=== PATIENT | female | born 1985 | race American Indian/Alaskan Native ===

== ENCOUNTER 2016-04-20 15:39 | Emergency (ER) | payer MEDICAID, OTHER ==
--- NOTE | 2016-04-20 16:51 | Emergency Department Report ---
Chief Complaint: Abdominal Pain Stated Complaint: GENERAL Time Seen by Provider: 04/20/16 16:44 - HPI History of Present Illness: Patient here reports vaginal discharge with odor. She is complaining of lower abdominal pain and lower back pain times one week. Reports painful urination. She also reports diarrhea. Patient said that she was seen at [facility] last week for back pain and she's not getting any relief with tramadol. She denies fever or chills. Denies any nausea or vomiting. Reports that her abdominal or back pain is 10 out of 10 and it feels like pressure. Has any blood in urine. Last menstrual period was one third 2017 - ROS Review of Systems: all Systems are negative unless stated in HPI above. - Exam Vital Signs: Vital Signs 04/20/16 16:13 Temperature 98.4 F Pulse Rate 81 Respiratory 16 Rate Blood Pressure 122/86 Physical Exam: GEN: This is a morbidly obese patient does not seem to be in any acute distress. Abdomen: Tender to palpate the pelvic area. Normal bowel sounds. Positive CVA tenderness. CV: S1, S2. Regular rate and rhythm. MSE screening note: Focused history and physical exam performed. Due to findings the following was ordered:see mdm ED Medical Decision Making - Medical Decision Making Medical decision making: Patient seen by provider in triage area. Appropriate protocol activated and patient to main ED to be seen by physician. ED Disposition for MSE Condition: Stable Instructions: Abdominal Pain (ED)
[2016-04-20 17:33] LABS: Basophils % (Auto) 0.6 % (0.0-1.8); Eosinophils % (Auto) 2.7 % (0.0-4.3); Hematocrit 39.7 % (30.3-42.9); Hemoglobin 12.7 gm/dl (10.1-14.3); Mean Corpuscular HGB Conc 32 % (30-34); Mean Corpuscular Hemoglobin 27 pg (28-32); Mean Corpuscular Volume 85 fl (79-97); Platelet Count 288 K/mm3 (140-440); Red Blood Count 4.68 M/mm3 (3.65-5.03); Red Cell Distribution Width 13.9 % (13.2-15.2); White Blood Count 12.9 K/mm3 (4.5-11.0)
[2016-04-20 18:01] LABS: Alanine Aminotransferase 23 units/L (7-56); Albumin 3.3 g/dL (3.9-5); Alkaline Phosphatase 79 units/L (35-129); Bilirubin,Total 0.2 mg/dL (0.1-1.2); Blood Urea Nitrogen 3 mg/dL (7-17); Calcium 8.2 mg/dL (8.4-10.2); Carbon Dioxide 25 mmol/L (22-30); Glucose 134 mg/dL (65-100); Lipase 20 units/L (13-60); Potassium 3.6 mmol/L (3.6-5.0); Sodium 142 mmol/L (137-145); Total Protein 6.5 g/dL (6.3-8.2)
[2016-04-20 18:13] LABS: Bilirubin,Direct < 0.2 mg/dL (0-0.2)
[2016-04-20 18:14] LABS: Anion Gap 17 mmol/L
[2016-04-20 19:31] LABS: Bilirubin,Urine NEG (Negative); Blood,Urine NEG (Negative); Ketones,Urine NEG (Negative); Leukocyte Esterase,Urine SM (Negative); Mucus,Urine FEW /HPF; Nitrite,Urine NEG (Negative); Protein,Urine <15 mg/dL mg/dL (Negative); Urobilinogen,Urine < 2.0 mg/dL (<2.0)
[2016-04-21] MEDS ORDERED: DILAUDID IV ONE (02:44)
[2016-04-21] MEDS ORDERED: NACL 0.9% 1000 ML 1,000 ML IV ONE (02:44)
[2016-04-21] MEDS ORDERED: VIBRAMYCIN PO ONE (02:44)
[2016-04-21] MEDS ORDERED: TORADOL IV ONE (02:44)
[2016-04-21] MEDS ORDERED: ROCEPHIN/NS 1 GM/50 ML 50 ML IV ONE (02:44)
[2016-04-21] MEDS ORDERED: ZOFRAN IV ONE (02:44)
--- NOTE | 2016-04-21 02:46 | Emergency Department Report ---
ED Abdominal Pain HPI - General Chief Complaint: Abdominal Pain Stated Complaint: GENERAL Time Seen by Provider: 04/20/16 16:52 Source: patient, RN notes reviewed Mode of arrival: Ambulatory Limitations: No Limitations - History of Present Illness Initial Comments: This is a 30-year-old female, previously unknown to me. She recently moved here from [place]. She does not have a primary care doctor. She denies chronic medical conditions, with the exception of obesity. The patient presents to the ER with bilateral lower back pain, vaginal discharge and abdominal pain for one week. Patient was seen at another hospital last week, discharged with antibiotics, she cannot remember the name of antibiotics, but she indicates she was unable to afford them secondary to insurance issues. Pain is sharp, achy, increases with palpation, decreases with rest. Positive dysuria. Positive vaginal discharge. 2 sexual partners in the past year. Patient reports sporadic barrier protection use. MD Complaint: abdominal pain -: Gradual Location: diffuse Severity: moderate Severity scale (0 -10): 10 Quality: cramping Consistency: intermittent Improves With: rest Worsens With: movement Associated Symptoms: nausea, dysuria - Related Data Previous Rx's Medication Instructions Recorded Last Taken Type Doxycycline [Vibramycin] 100 mg PO Q12HR #28 capsule 04/21/16 Unknown Rx Ibuprofen [Motrin] 600 mg PO Q8H PRN #30 tablet 04/21/16 Unknown Rx Ondansetron [Zofran Odt] 4 mg PO QID PRN #20 tab.rapdis 04/21/16 Unknown Rx Allergies Allergy/AdvReac Type Severity Reaction Status Date / Time morphine Allergy Itching Verified 04/20/16 16:10 ED Review of Systems ROS: Stated complaint: GENERAL Other details as noted in HPI Constitutional: malaise, weakness. denies: fever Eyes: denies: vision change ENT: denies: epistaxis Respiratory: denies: cough, shortness of breath, wheezing Cardiovascular: denies: chest pain, palpitations Gastrointestinal: abdominal pain Genitourinary: discharge Musculoskeletal: back pain Skin: denies: rash, lesions Neurological: denies: headache, weakness, paresthesias ED Past Medical Hx - Medications Home Medications: Home Medications Medication Instructions Recorded Confirmed Last Taken Type Doxycycline [Vibramycin] 100 mg PO Q12HR #28 capsule 04/21/16 Unknown Rx Ibuprofen [Motrin] 600 mg PO Q8H PRN #30 tablet 04/21/16 Unknown Rx Ondansetron [Zofran Odt] 4 mg PO QID PRN #20 tab.rapdis 04/21/16 Unknown Rx ED Physical Exam - General Limitations: No Limitations General appearance: alert, in no apparent distress, obese - Head Head exam: Present: atraumatic, normocephalic - Eye Eye exam: Present: normal appearance - ENT ENT exam: Present: normal exam, normal orophraynx, mucous membranes moist, normal external ear exam - Neck Neck exam: Present: normal inspection, full ROM. Absent: tenderness, meningismus - Respiratory Respiratory exam: Present: normal lung sounds bilaterally. Absent: respiratory distress, wheezes, rales, rhonchi, stridor, chest wall tenderness - Cardiovascular Cardiovascular Exam: Present: regular rate, normal rhythm, normal heart sounds. Absent: bradycardia, tachycardia, irregular rhythm, systolic murmur, diastolic murmur, rubs, gallop - GI/Abdominal GI/Abdominal exam: Present: soft, tenderness, normal bowel sounds. Absent: distended, guarding, rebound, rigid, pulsatile mass - External exam: Present: normal external exam Speculum exam: Present: normal speculum exam, cervical discharge Bi-manual exam: Present: cervical motion tendernes, adnexal tenderness, adnexal mass, other (escorted by [facility] Elena Crenshaw) - Extremities Exam Extremities exam: Present: normal inspection, full ROM, normal capillary refill. Absent: tenderness, pedal edema, joint swelling, calf tenderness - Back Exam Back exam: Present: normal inspection, full ROM, CVA tenderness (R), CVA tenderness (L), paraspinal tenderness. Absent: tenderness - Neurological Exam Neurological exam: Present: alert, oriented X3, normal gait, other (Extraocular movements intact. Tongue midline. No facial droop. Facial sensation intact to light touch in the V1, V2, V3 distribution bilaterally. 5 and 5 strength in 4 extremities.. Sensation is intact to light touch in 4 extremities.). Absent : motor sensory deficit - Psychiatric Psychiatric exam: Present: normal affect, normal mood - Skin Skin exam: Present: warm, dry, intact, normal color. Absent: rash ED Course Vital Signs 04/20/16 04/21/16 04/21/16 16:13 00:23 02:30 Temperature 98.4 F 98.2 F Pulse Rate 81 70 Respiratory 16 20 16 Rate Blood Pressure 122/86 Blood Pressure 133/87 [Left] O2 Sat by Pulse 100 98 Oximetry 04/21/16 04/21/16 04/21/16 03:00 03:45 03:50 Temperature 98 F Pulse Rate 72 Respiratory 18 18 18 Rate Blood Pressure Blood Pressure 128/84 [Left] O2 Sat by Pulse 98 Oximetry - Reevaluation(s) Reevaluation #1: 04/21/16 03:21 Differential diagnosis: Urinary tract infection, pelvic inflammatory disease, tubo-ovarian abscess, trichomoniasis Assessment and plan: 30-year-old female distant history of appendectomy, diffuse abdominal pain, gynecologic tenderness, vaginal discharge, highly suspect pelvic inflammatory disease. Wet prep demonstrates presence of trichomoniasis. The patient was given a "good Rx" coupon for doxycycline, which will cost her $ 28 for 28 tablets. She will be treated empirically with ceftriaxone and metronidazole as well. Given her tenderness, we will obtain a CT scan to exclude surgical disease. Patient reports she is able to tolerate hydromorphone. Reevaluation #2: 04/21/16 05:02 CT scan of the abdomen/pelvis demonstrates no evidence of tubo-ovarian abscess. The appendix is not definitively identified, however the patient reported to me that through history she had her appendix removed. Reproductive organs demonstrate soft tissue foci in the adnexal regions. Within the vaginal canal there is a rounded hypodensity structure with a thin enhancing wall. May be a vaginal cyst. Small abscess is not excluded. On my physical exam I did not detect an obvious abscess in the vaginal canal. As planned, patient will be discharged with doxycycline, pain medication, nausea medication. Return precautions are extensively reviewed. ED Medical Decision Making - Lab Data Result diagrams: 04/20/16 17:22 04/20/16 17:22 Vital Signs 04/20/16 04/21/16 16:13 00:23 Temperature 98.4 F 98.2 F Pulse Rate 81 70 Respiratory 16 20 Rate Blood Pressure 122/86 Blood Pressure 133/87 [Left] O2 Sat by Pulse 100 Oximetry Lab Results 04/20/16 04/20/16 04/20/16 Range/Units 17:22 17:22 17:22 WBC 12.9 H (4.5-11.0) K/mm3 RBC 4.68 (3.65-5.03) M/mm3 Hgb 12.7 (10.1-14.3) gm/dl Hct 39.7 (30.3-42.9) % MCV 85 (79-97) fl MCH 27 L (28-32) pg MCHC 32 (30-34) % RDW 13.9 (13.2-15.2) % Plt Count 288 (140-440) K/mm3 Lymph % (Auto) 22.2 (13.4-35.0) % [place] % (Auto) 6.1 (0.0-7.3) % Eos % (Auto) 2.7 (0.0-4.3) % Baso % (Auto) 0.6 (0.0-1.8) % Lymph # 2.9 (1.2-5.4) K/mm3 [place] # 0.8 (0.0-0.8) K/mm3 Eos # 0.4 (0.0-0.4) K/mm3 Baso # 0.1 (0.0-0.1) K/mm3 Seg Neutrophils % 68.4 (40.0-70.0) % Seg Neutrophils # 8.8 H (1.8-7.7) K/mm3 Sodium 142 (137-145) mmol/L Potassium 3.6 (3.6-5.0) mmol/L Chloride 104.0 (98-107) mmol/L Carbon Dioxide 25 (22-30) mmol/L Anion Gap 17 mmol/L BUN 3 L (7-17) mg/dL Creatinine 0.6 L (0.7-1.2) mg/dL Estimated GFR > 60 ml/min BUN/Creatinine Ratio 5.00 % Glucose 134 H (65-100) mg/dL Calcium 8.2 L (8.4-10.2) mg/dL Total Bilirubin 0.2 (0.1-1.2) mg/dL Direct Bilirubin < 0.2 (0-0.2) mg/dL Indirect Bilirubin 0.0 mg/dL AST 18 (5-40) units/L ALT 23 (7-56) units/L Alkaline Phosphatase 79 (35-129) units/L Total Protein 6.5 (6.3-8.2) g/dL Albumin 3.3 L (3.9-5) g/dL Albumin/Globulin Ratio 1.0 % Amylase 58 (27-131) units/L Lipase 20 (13-60) units/L HCG, Qual (Negative) Urine Color (Yellow) Urine Turbidity (Clear) Urine pH (5.0-7.0) Ur Specific [place] (1.003-1.030) Urine Protein (Negative) mg/dL Urine Glucose (UA) (Negative) mg/dL Urine Ketones (Negative) mg/dL Urine Blood (Negative) Urine Nitrite (Negative) Urine Bilirubin (Negative) Urine Urobilinogen (<2.0) mg/dL Ur Leukocyte Esterase (Negative) Urine WBC (Auto) (0.0-6.0) /HPF Urine RBC (Auto) (0.0-6.0) /HPF U Epithel Cells (Auto) (0-13.0) /HPF Urine Mucus /HPF 04/20/16 04/20/16 Range/Units 17:22 18:30 WBC (4.5-11.0) K/mm3 RBC (3.65-5.03) M/mm3 Hgb (10.1-14.3) gm/dl Hct (30.3-42.9) % MCV (79-97) fl MCH (28-32) pg MCHC (30-34) % RDW (13.2-15.2) % Plt Count (140-440) K/mm3 Lymph % (Auto) (13.4-35.0) % [place] % (Auto) (0.0-7.3) % Eos % (Auto) (0.0-4.3) % Baso % (Auto) (0.0-1.8) % Lymph # (1.2-5.4) K/mm3 [place] # (0.0-0.8) K/mm3 Eos # (0.0-0.4) K/mm3 Baso # (0.0-0.1) K/mm3 Seg Neutrophils % (40.0-70.0) % Seg Neutrophils # (1.8-7.7) K/mm3 Sodium (137-145) mmol/L Potassium (3.6-5.0) mmol/L Chloride (98-107) mmol/L Carbon Dioxide (22-30) mmol/L Anion Gap mmol/L BUN (7-17) mg/dL Creatinine (0.7-1.2) mg/dL Estimated GFR ml/min BUN/Creatinine Ratio % Glucose (65-100) mg/dL Calcium (8.4-10.2) mg/dL Total Bilirubin (0.1-1.2) mg/dL Direct Bilirubin (0-0.2) mg/dL Indirect Bilirubin mg/dL AST (5-40) units/L ALT (7-56) units/L Alkaline Phosphatase (35-129) units/L Total Protein (6.3-8.2) g/dL Albumin (3.9-5) g/dL Albumin/Globulin Ratio % Amylase (27-131) units/L Lipase (13-60) units/L HCG, Qual Negative (Negative) Urine Color Yellow (Yellow) Urine Turbidity Clear (Clear) Urine pH 6.0 (5.0-7.0) Ur Specific [place] 1.017 (1.003-1.030) Urine Protein <15 mg/dl (Negative) mg/dL Urine Glucose (UA) Neg (Negative) mg/dL Urine Ketones Neg (Negative) mg/dL Urine Blood Neg (Negative) Urine Nitrite Neg (Negative) Urine Bilirubin Neg (Negative) Urine Urobilinogen < 2.0 (<2.0) mg/dL Ur Leukocyte Esterase Sm (Negative) Urine WBC (Auto) 2.0 (0.0-6.0) /HPF Urine RBC (Auto) 2.0 (0.0-6.0) /HPF U Epithel Cells (Auto) 2.0 (0-13.0) /HPF Urine Mucus Few /HPF - Radiology Data Radiology results: report reviewed, image reviewed CT scan of the abdomen and pelvis demonstrates soft tissue foci in the adnexal regions which may be the normal ovaries. Within the vaginal canal there is a 2.1 cm hypodense structure which may be a vaginal cyst. The GI tract is unremarkable. No other CT evidence of distinct acute or significant finding. Critical care attestation.: If time is entered above; I have spent that time in minutes in the direct care of this critically ill patient, excluding procedure time. ED Disposition Clinical Impression: Trichomoniasis, Abdominal pain Disposition: DISCHARGED TO HOME OR SELFCARE Is pt being admited?: No Does the pt Need Aspirin: No Condition: Stable Instructions: Pelvic Inflammatory Disease (ED) Additional Instructions: As we discussed, your laboratory studies appeared to be within normal limits. You are not . Given all this, you'll be treated empirically for disease called pelvic inflammatory disease. We typically treat young females with unexplained lower abdominal pain to protect your ability to have children safely in the future. Cultures were sent today, and results will be available next 3-5 days. Please have your primary care doctor call the medical records department to obtain your culture results. Take the antibiotic therapy as directed. Take the nausea medication and pain medication as directed. I recommend outpatient testing for sexually transmitted diseases, including hepatitis, syphilis and HIV. I also recommend that you abstain from sexual activity until you have completed her antibiotic therapy, a physician states that it is safe for you to resume sexual activity, and any partners that you have been sexually active with have been tested/treated/evaluated for sexual transmitted diseases. Please follow-up with physician within 3-5 days. I recommend that you return to the ER right away with worsening pain, migration of pain, intractable nausea/vomiting, inability tolerate liquid feeds. Make certain to take the doxycycline antibiotic and ibuprofen and pain medication with food, as they can upset her stomach. Prescriptions: Ibuprofen [Motrin] 600 mg PO Q8H PRN #30 tablet PRN Reason: Pain Doxycycline [Vibramycin] 100 mg PO Q12HR #28 capsule Ondansetron [Zofran Odt] 4 mg PO QID PRN #20 tab.rapdis PRN Reason: Nausea Referrals: PRIMARY CARE, [Primary Care Provider] - 3-5 Days CLAUDETTE ALVARES MD [Staff Physician] - 3-5 Days JOSHUA FRANCO MD [Staff Physician] - 3-5 Days
[2016-04-21] MEDS ORDERED: FLAGYL PO ONE (03:19)
[2016-04-21] MEDS ORDERED: BENADRYL ONE (03:22)
[2016-04-21] MEDS ORDERED: NACL ONE (03:28)
[2016-04-21 04:10] VITALS: BP 128/84
--- NOTE | 2016-04-21 04:53 | Cat Scan Report ---
FINAL REPORT PROCEDURE: CT ABDOMEN PELVIS W CON TECHNIQUE: Computerized axial tomography of the abdomen and pelvis was performed after the IV injection of iodinated nonionic contrast. Oral contrast was not given HISTORY: Abdominal pain and back pain COMPARISON: No prior studies are available for comparison. FINDINGS: Visualized lower thorax: No significant abnormality. Liver: Hypodensities in the liver are likely un opacified vessels. Spleen: Appears slightly heterogenous on initial phase. This is likely due to contrast flux.. Gallbladder and biliary system: Prior cholecystectomy. Pancreas: Normal. Adrenals: Normal. Kidneys: Normal. GI tract: The bowel appears unremarkable when considering lack of oral contrast. However I cannot identify the appendix. There may be a small surgical clip or suture in the region of the medial cecum.. Lymph nodes and mesentery: Normal. Vasculature: Normal. Bladder: Normal. Reproductive organs: Soft tissue foci in the adnexal regions bilaterally may be the normal ovaries. However these are not well evaluated by CT. Within the vaginal canal there is a 2.1 centimeter rounded hypodense structure with a thin enhancing wall. This could be some type of vaginal cyst. However it is true significance is uncertain. A small abscess here is not excluded considering the enhancing wall.. Peritoneum: No free fluid. Musculoskeletal structures: No significant abnormality. Other: None. IMPRESSION: 1. Within the vaginal canal there is a 2.1 centimeter rounded hypodense possible fluid-filled structure with a thin enhancing wall. The significance of this finding is uncertain. This could be some type of vaginal cyst. However considering the enhancing wall, a small abscess here is not excluded. However it is nonspecific. This would likely be evident on pelvic physical exam. Whether not this is incidental or related to the patient's current symptoms is uncertain 2. There is no CT evidence of distinct acute or significant finding otherwise. There is no CT evidence of renal or ureteral stone or hydronephrosis. 3. There has been a previous cholecystectomy
== END 2016-04-21 06:03 | disposition home or self-care (01) ==
LOC: ED 15:39
DX: A59.9 Trichomoniasis, unspecified (principal); M54.5 Low back pain; Z88.6 Allergy status to analgesic agent
CPT/HCPCS: 36415; 74177; 80048; 80074; 81001; 82150; 83690; 84703; 85025; 87210; 87591; 96365; 96375; 99284; J0696; J1170; J1200; J1885; J2405; J7030; Q9967

== ENCOUNTER 2016-09-14 07:39 | Emergency (ER) | payer SELFPAY ==
[2016-09-14 07:52] VITALS: BP 135/82
[2016-09-14 08:46] LABS: Bacteria,Urine 1+ /HPF (Negative); Bilirubin,Urine NEG (Negative); Blood,Urine NEG (Negative); Ketones,Urine NEG (Negative); Leukocyte Esterase,Urine MOD (Negative); Mucus,Urine FEW /HPF; Nitrite,Urine NEG (Negative); Protein,Urine <15 mg/dL mg/dL (Negative); Urobilinogen,Urine < 2.0 mg/dL (<2.0)
--- NOTE | 2016-09-14 18:37 | Emergency Department Report ---
Entered by KAMILLE XIONG, acting as scribe for AUDRA MURRIETA NP. - General Chief Complaint: Upper Respiratory Infection Stated Complaint: FLU SYMPTOMS/LOWER ABD LUMP Time Seen by Provider: 09/14/16 09:45 Source: patient Mode of arrival: Ambulatory Limitations: No Limitations - History of Present Illness Initial Comments: This is a 30 y/o female that is nontoxic, well nourished in appearance, no acute signs of distress with a PMHx of asthma c/o an upper respiratory infection that began 4 days ago. Associated sore throat, cough with yellow sputum, myalgias, but she denies fever, chest pain, SOB, abd pain, n/v, headachem blurry vision, eye pain, ear pain, and vision changes. Rates generalized pain a 10/10 in severity, which she describes as aching in quality. Took Robitussin and Tylenol with no relief. Patient's secondary complaint consists a possible STD exposure. Patient states that she doesn't want to be treated for STDs, but she wants to be tested. Associated lump on incisional lower abdomen area from surgery of in 2015, but she denies abdominal pain, dysuria, urgency, frequency, and vaginal discharge. Notes being sexually active with 1 partner for 1 year. Hx in 2015. Allergic to morphine. MD Complaint: cough, sore throat Onset/Timin -: days(s) Severity: severe Severity scale (0 -10): 10 Quality: aching Consistency: constant Improves With: nothing (took Robitussin and Tylenol with no relief) Worsens With: nothing Associated Symptoms: denies other symptoms, chills, myalgias, sore throat, cough (with yellow sputum). denies: fever, diaphoresis, headache, rhinorrhea, nasal congestion, stiff neck, chest pain, shortness of breath, abdominal pain, nausea, vomiting, diarrhea, dysuria, rash, right sweats, weight loss, epistaxis , hoarseness, ear pain Treatments Prior to Arrival: Acetaminophen (Tylenol), "cold medicine" ( Robitussin) - Related Data Previous Rx's Medication Instructions Recorded Last Taken Type Doxycycline [Vibramycin] 100 mg PO Q12HR #28 capsule 04/21/16 Unknown Rx Ibuprofen [Motrin] 600 mg PO Q8H PRN #30 tablet 04/21/16 Unknown Rx Ondansetron [Zofran Odt] 4 mg PO QID PRN #20 tab.rapdis 04/21/16 Unknown Rx oxyCODONE [Roxicodone] 5 mg PO Q6HR PRN #15 tablet 04/21/16 Unknown Rx Cephalexin [Keflex] 500 mg PO Q12HR 10 Days 09/14/16 Unknown Rx Allergies Allergy/AdvReac Type Severity Reaction Status Date / Time morphine Allergy Itching Verified 04/20/16 16:10 ED Review of Systems Comment: All other systems reviewed and negative Constitutional: chills. denies: diaphoresis, fever, weakness Eyes: denies: eye pain, vision change ENT: throat pain. denies: ear pain, congestion Respiratory: cough (with yellow sputum). denies: orthopnea, shortness of breath , SOB with exertion, SOB at rest, wheezing Cardiovascular: denies: chest pain, palpitations, edema, syncope Endocrine: no symptoms reported Gastrointestinal: denies: abdominal pain, nausea, vomiting Genitourinary: denies: urgency, dysuria, frequency, hematuria, discharge Musculoskeletal: myalgia (body aches). denies: back pain, joint swelling, arthralgia Skin: other (lump on lower abdomen). denies: rash, lesions, change in hair/ nails, pruritus Neurological: denies: headache, weakness, numbness, paresthesias, confusion, abnormal gait, vertigo Psychiatric: denies: anxiety, depression Hematological/Lymphatic: denies: easy bleeding, easy bruising ED Past Medical Hx - Past Medical History Previous Medical History?: Yes Hx Asthma: Yes - Surgical History Past Surgical History?: Yes Hx Cholecystectomy: Yes Hx Appendectomy: Yes Additional Surgical History: 2014 - Social History Smoking Status: Current Every Day Smoker Substance Use Type: Non Opiate Pain, Other - Medications Home Medications: Home Medications Medication Instructions Recorded Confirmed Last Taken Type Doxycycline [Vibramycin] 100 mg PO Q12HR #28 capsule 04/21/16 Unknown Rx Ibuprofen [Motrin] 600 mg PO Q8H PRN #30 tablet 04/21/16 Unknown Rx Ondansetron [Zofran Odt] 4 mg PO QID PRN #20 tab.rapdis 04/21/16 Unknown Rx oxyCODONE [Roxicodone] 5 mg PO Q6HR PRN #15 tablet 04/21/16 Unknown Rx Cephalexin [Keflex] 500 mg PO Q12HR 10 Days 09/14/16 Unknown Rx ED Physical Exam - General Limitations: No Limitations General appearance: alert, in no apparent distress - Head Head exam: Present: atraumatic, normocephalic, normal inspection - Eye Eye exam: Present: normal appearance, PERRL, EOMI. Absent: scleral icterus, conjunctival injection, nystagmus, periorbital swelling, periorbital tenderness Pupils: Present: normal accommodation - ENT ENT exam: Present: normal exam, normal orophraynx, mucous membranes moist, TM's normal bilaterally, normal external ear exam - Expanded ENT Exam Expanded Ear exam: Present: normal external inspection Mouth exam: Present: normal external inspection (uvula is midline), tongue normal. Absent: drooling, trismus, muffled voice, tongue elevation, laceration Teeth exam: Present: normal inspection Throat exam: Positive: tonsillar erythema, tonsillomegaly (2+ tonsils). Negative: tonsillar exudate, R peritonsillar mass, L peritonsillar mass - Neck Neck exam: Present: normal inspection, full ROM. Absent: tenderness, meningismus, lymphadenopathy - Respiratory Respiratory exam: Present: normal lung sounds bilaterally. Absent: respiratory distress, wheezes, rales, rhonchi, stridor, accessory muscle use, decreased breath sounds - Cardiovascular Cardiovascular Exam: Present: regular rate, normal rhythm, normal heart sounds. Absent: systolic murmur, diastolic murmur, rubs, gallop - GI/Abdominal GI/Abdominal exam: Present: soft, normal bowel sounds, other (keloid present on lower abdomen from previous ). Absent: distended, tenderness, guarding , rebound, rigid - Rectal Rectal exam: Present: deferred - Extremities Exam Extremities exam: Present: normal inspection, full ROM, normal capillary refill. Absent: tenderness, pedal edema, joint swelling, calf tenderness - Back Exam Back exam: Present: normal inspection, full ROM. Absent: tenderness, CVA tenderness (R), CVA tenderness (L), muscle spasm, paraspinal tenderness, vertebral tenderness, rash noted - Neurological Exam Neurological exam: Present: alert, oriented X3, CN II-XII intact, normal gait - Psychiatric Psychiatric exam: Present: normal affect, normal mood - Skin Skin exam: Present: warm, dry, intact. Absent: rash - Other Other exam information: Patient refused pelvic exam and stated she will f/u with her PCP for gonorrhea/ chlamydia and wet prep ED Course Vital Signs 09/14/16 07:45 Temperature 98.5 F Pulse Rate 79 Respiratory 20 Rate Blood Pressure 135/82 O2 Sat by Pulse 100 Oximetry - Reevaluation(s) Reevaluation #1: 09/14/16 11:44 Patient is resting comfortably and watching TV. No signs of distress noted. ED Medical Decision Making - Medical Decision Making Ed course: This is a 30-year-old female that presents with tonsillitis and pharyngitis 1- after my physical exam, patient is d/c with Keflex for 7 days and was instructed to finish full course of antibiotics 2- Patient refused pelvic/vaginal exam./ Patient stated she will f/u with her PCP for gonorrhea/chlamydia and wet prep. 3- at time time of discharge, the patient does not seem toxic or ill in appearance. No acute signs of distress noted. Patient agrees to discharge treatment plan of care. No further questions noted by the patient. 4- patient was instructed to follow up with her primary care doctor in 3-5 days or if symptoms worsen such as shortness of breath, chest pain, numbness, tingling, difficulty breathing, pus, drainage, drooling report back to emergency room as soon as possible. ED Disposition Clinical Impression: Tonsillitis, Pharyngitis Disposition: TO HOME OR SELFCARE Is pt being admited?: No Does the pt Need Aspirin: No Condition: Stable Instructions: Amoxicillin (By mouth), Pharyngitis (ED), Tonsillitis (ED) Additional Instructions: follow up with your primary care doctor in 3-5 days or if symptoms worsen such as shortness of breath, chest pain, numbness, tingling, difficulty breathing, pus, drainage, drooling report back to emergency room as soon as possible. Take full course of antibiotics as prescribed. Prescriptions: Cephalexin [Keflex] 500 mg PO Q12HR 10 Days Referrals: ISAURO MAR MD [Primary Care Provider] - 3-5 Days JACK ARRIETA JR, MD [Staff Physician] - 3-5 Days [facility] [Outside] - 3-5 Days [facility] [Outside] - 3-5 Days Forms: Work/School Release Form(ED) This documentation as recorded by the TYRESE knox JASMINE,accurately reflects the service I personally performed and the decisions made by ,AUDRA MURRIETA, [employer].
== END 2016-09-14 12:39 | disposition home or self-care (01) ==
LOC: ED 07:39
DX: J03.90 Acute tonsillitis, unspecified (principal); J02.9 Acute pharyngitis, unspecified; J45.909 Unspecified asthma, uncomplicated; F17.200 Nicotine dependence, unspecified, uncomplicated; Z88.5 Allergy status to narcotic agent
CPT/HCPCS: 81001; 81025; 99283

== ENCOUNTER 2016-11-22 15:58 | Emergency (ER) | payer OTHER ==
[2016-11-22 16:52] LABS: Basophils % (Auto) 0.5 % (0.0-1.8); Eosinophils % (Auto) 1.3 % (0.0-4.3); Hematocrit 43.2 % (30.3-42.9); Mean Corpuscular HGB Conc 32 % (30-34); Mean Corpuscular Hemoglobin 27 pg (28-32); Mean Corpuscular Volume 84 fl (79-97); Platelet Count 338 K/mm3 (140-440); Red Blood Count 5.18 M/mm3 (3.65-5.03); Red Cell Distribution Width 14.3 % (13.2-15.2); White Blood Count 14.5 K/mm3 (4.5-11.0)
[2016-11-22 17:13] LABS: Alanine Aminotransferase 14 units/L (7-56); Albumin 3.5 g/dL (3.9-5); Albumin/Globulin Ratio 0.9 %; Alkaline Phosphatase 63 units/L (35-129); Anion Gap 18 mmol/L; BUN/Creatinine Ratio 6.66; Blood Urea Nitrogen 4 mg/dL (7-17); Calcium 8.8 mg/dL (8.4-10.2); Carbon Dioxide 23 mmol/L (22-30); Chloride 100.8 mmol/L (98-107); Glucose 113 mg/dL (65-100); Lipase 20 units/L (13-60); Potassium 3.7 mmol/L (3.6-5.0); Sodium 138 mmol/L (137-145); Total Protein 7.4 g/dL (6.3-8.2)
[2016-11-22 17:59] LABS: Bacteria,Urine 1+ /HPF (Negative); Bilirubin,Urine NEG (Negative); Blood,Urine NEG (Negative); Ketones,Urine NEG (Negative); Leukocyte Esterase,Urine LG (Negative); Mucus,Urine 3+ /HPF; Nitrite,Urine NEG (Negative); Urobilinogen,Urine < 2.0 mg/dL (<2.0)
[2016-11-22] MEDS ORDERED: NACL 0.9% 1000 ML 1,000 ML IV ONE (21:05)
[2016-11-22] MEDS ORDERED: ROCEPHIN/NS 1 GM/50 ML 1 GM/50 ML BAG IV ONE (21:05)
[2016-11-22 22:13] VITALS: BP 120/88
--- NOTE | 2016-11-22 22:22 | Emergency Department Report ---
<CR WHITE - Last Filed: 11/25/16 21:30> ED Abdominal Pain HPI - General Chief Complaint: Abdominal Pain Stated Complaint: POSS STOMACH VIRUS Time Seen by Provider: 11/22/16 22:20 Source: patient Mode of arrival: Ambulatory Limitations: No Limitations - History of Present Illness Initial Comments: Patient here complaining that she has diarrhea brown and abdominal pain to her pelvic area last menstrual period was September 2016 she cannot give me a date and said that she is late. Denies any nausea or vomiting. She said the pain is burning and its were her herlinda is located. Denies any urinary burning frequency or urgency. Denies any fever or chills. Denies any back pain. Patient states that she took a test at home and it was positive. She had one episode of diarrhea. Denies any vaginal bleeding in but reports some vaginal discharge and reported that she wants to be tested for STDs. Patient with history of asthma, appendectomy, and cholecystectomy. MD Complaint: abdominal pain, other (episodic diarrhea, concern for STD) Onset/Timin -: week(s) Location: suprapubic Radiation: none Migration to: no migration Severity: severe Severity scale (0 -10): 7 Quality: burning Consistency: intermittent Worsens With: nothing Context: other (possible ) Associated Symptoms: diarrhea. denies: nausea, vomiting, fever, chills, constipation, dysuria, hematemesis, hematochezia, melena, hematuria, anorexia, syncope Treatments Prior to Arrival: other (none) - Related Data LMP (females 10-50): other (more than 1 month) Previous Rx's Medication Instructions Recorded Last Taken Type Nitrofurantoin [place]/M-Cryst 100 mg PO Q12HR #14 capsule 11/22/16 Unknown Rx [Macrobid CAP] Vit No.130/Iron/FA 1 each PO QAM #30 tablet 11/22/16 Unknown Rx [ Tablet] metroNIDAZOLE [Flagyl] 500 mg PO Q12HR #14 tab 11/22/16 Unknown Rx Allergies Allergy/AdvReac Type Severity Reaction Status Date / Time Iodinated Contrast Media - Allergy Itching Verified 11/22/16 22:11 IV Dye morphine Allergy Itching Verified 11/22/16 22:11 ED Review of Systems ROS: Stated complaint: POSS STOMACH VIRUS Other details as noted in HPI Comment: All other systems reviewed and negative Constitutional: denies: chills, fever, weakness ENT: denies: throat pain, congestion Respiratory: no symptoms reported Cardiovascular: denies: chest pain, palpitations, dyspnea on exertion, edema, syncope Gastrointestinal: abdominal pain, diarrhea. denies: nausea, vomiting, constipation, hematemesis, melena, hematochezia Genitourinary: discharge, abnormal menses. denies: urgency, dysuria, frequency , hematuria, dyspareunia Musculoskeletal: denies: back pain, joint swelling, arthralgia, myalgia Skin: denies: rash, pruritus Neurological: denies: headache, weakness, paresthesias, confusion, abnormal gait , vertigo ED Past Medical Hx - Past Medical History Previous Medical History?: Yes Hx Asthma: Yes - Surgical History Past Surgical History?: Yes Hx Cholecystectomy: Yes Hx Appendectomy: Yes Additional Surgical History: 2014 - Family History Family history: hypertension - Social History Smoking Status: Current Every Day Smoker Substance Use Type: Alcohol - Medications Home Medications: Home Medications Medication Instructions Recorded Confirmed Last Taken Type Nitrofurantoin [place]/M-Cryst 100 mg PO Q12HR #14 capsule 11/22/16 Unknown Rx [Macrobid CAP] Vit No.130/Iron/FA 1 each PO QAM #30 tablet 11/22/16 Unknown Rx [ Tablet] metroNIDAZOLE [Flagyl] 500 mg PO Q12HR #14 tab 11/22/16 Unknown Rx ED Physical Exam - General Limitations: No Limitations General appearance: alert, in no apparent distress - Head Head exam: Present: atraumatic, normocephalic, normal inspection - Eye Eye exam: Present: normal appearance, EOMI Pupils: Present: normal accommodation - ENT ENT exam: Present: normal exam, normal orophraynx, mucous membranes moist - Neck Neck exam: Present: normal inspection, full ROM. Absent: tenderness, meningismus, lymphadenopathy - Respiratory Respiratory exam: Present: normal lung sounds bilaterally. Absent: respiratory distress, chest wall tenderness - Cardiovascular Cardiovascular Exam: Present: regular rate, normal rhythm, normal heart sounds - GI/Abdominal GI/Abdominal exam: Present: soft, normal bowel sounds. Absent: distended, tenderness, guarding, rebound, rigid, organomegaly, mass, bruit - External exam: Present: normal external exam. Absent: erythema, swelling, lesions, lacerations, ecchymosis, bleeding Speculum exam: Present: vaginal discharge, cervical discharge. Absent: erythema , vaginal bleeding, foreign body, tissue, laceration Bi-manual exam: Present: normal bi-manual exam. Absent: cervical motion tendernes, adnexal tenderness, adnexal mass, uterine enlargement, uterine tenderness - Expanded Exam Expanded Female exam: Absent: vaginal laceration, tissue present in vagina, herpetic lesions, vulvar erythema, vulvar tenderness, foreign body External exam: Present: normal Amniotic fluid: Present: none Speculum exam: Present: cervical OS closed - Extremities Exam Extremities exam: Present: normal inspection, full ROM, normal capillary refill. Absent: tenderness, pedal edema, joint swelling, calf tenderness - Back Exam Back exam: Present: normal inspection, full ROM. Absent: tenderness, CVA tenderness (R), CVA tenderness (L), muscle spasm, paraspinal tenderness, vertebral tenderness, rash noted - Neurological Exam Neurological exam: Present: alert, oriented X3, normal gait, reflexes normal. Absent: motor sensory deficit - Psychiatric Psychiatric exam: Present: normal affect, normal mood - Skin Skin exam: Present: warm, dry, intact, normal color. Absent: rash ED Course Vital Signs 11/22/16 11/22/16 16:20 22:11 Temperature 98.9 F Pulse Rate 89 88 Respiratory 18 20 Rate Blood Pressure 126/92 Blood Pressure 120/88 [Left] O2 Sat by Pulse 100 98 Oximetry - Reevaluation(s) Reevaluation #1: 11/22/16 22:22 Status stable. She has positive test and positive for acute cystitis. IV fluids started, IV Rocephin given without any adverse reaction. Pelvic exam done. Awaiting results of the wet prep. CHL collected and sent. Patient had ultrasound then results are pending. Reevaluation #2: 11/22/16 23:04 Recent wet prep negative for trichomonas and yeast and greater than 20% clue cells. IV Rocephin 1 g completed, patient treated empiricallyfor chlamydia with azithromycin 1 g by mouth. I discussed with her treatment for bacterial vaginosis. Ultrasound is still pending. 11/25/16 19:06 Reevaluation #3: 11/22/2016 23:15 She Was treated and discharged home in stable condition. ED Medical Decision Making - Lab Data Result diagrams: 11/22/16 16:36 11/22/16 16:36 Lab Results 11/22/16 11/22/16 11/22/16 Range/Units 16:36 16:36 16:36 WBC 14.5 H (4.5-11.0) K/mm3 RBC 5.18 H (3.65-5.03) M/mm3 Hgb 14.0 (10.1-14.3) gm/dl Hct 43.2 H (30.3-42.9) % MCV 84 (79-97) fl MCH 27 L (28-32) pg MCHC 32 (30-34) % RDW 14.3 (13.2-15.2) % Plt Count 338 (140-440) K/mm3 Lymph % (Auto) 22.5 (13.4-35.0) % [place] % (Auto) 5.8 (0.0-7.3) % Eos % (Auto) 1.3 (0.0-4.3) % Baso % (Auto) 0.5 (0.0-1.8) % Lymph # 3.2 (1.2-5.4) K/mm3 [place] # 0.8 (0.0-0.8) K/mm3 Eos # 0.2 (0.0-0.4) K/mm3 Baso # 0.1 (0.0-0.1) K/mm3 Seg Neutrophils % 69.9 (40.0-70.0) % Seg Neutrophils # 10.1 H (1.8-7.7) K/mm3 Sodium 138 (137-145) mmol/L Potassium 3.7 (3.6-5.0) mmol/L Chloride 100.8 (98-107) mmol/L Carbon Dioxide 23 (22-30) mmol/L Anion Gap 18 mmol/L BUN 4 L (7-17) mg/dL Creatinine 0.6 L (0.7-1.2) mg/dL Estimated GFR > 60 ml/min BUN/Creatinine Ratio 6.66 % Glucose 113 H (65-100) mg/dL Calcium 8.8 (8.4-10.2) mg/dL Total Bilirubin 0.40 (0.1-1.2) mg/dL AST 13 (5-40) units/L ALT 14 (7-56) units/L Alkaline Phosphatase 63 (35-129) units/L Total Protein 7.4 (6.3-8.2) g/dL Albumin 3.5 L (3.9-5) g/dL Albumin/Globulin Ratio 0.9 % Lipase 20 (13-60) units/L HCG, Qual Positive (Negative) HCG, Quant (0-4) mIU/mL Urine Color (Yellow) Urine Turbidity (Clear) Urine pH (5.0-7.0) Ur Specific [place] (1.003-1.030) Urine Protein (Negative) mg/dL Urine Glucose (UA) (Negative) mg/dL Urine Ketones (Negative) mg/dL Urine Blood (Negative) Urine Nitrite (Negative) Urine Bilirubin (Negative) Urine Urobilinogen (<2.0) mg/dL Ur Leukocyte Esterase (Negative) Urine WBC (Auto) (0.0-6.0) /HPF Urine RBC (Auto) (0.0-6.0) /HPF U Epithel Cells (Auto) (0-13.0) /HPF Urine Bacteria (Auto) (Negative) /HPF Urine Mucus /HPF 11/22/16 11/22/16 Range/Units 21:03 Unknown WBC (4.5-11.0) K/mm3 RBC (3.65-5.03) M/mm3 Hgb (10.1-14.3) gm/dl Hct (30.3-42.9) % MCV (79-97) fl MCH (28-32) pg MCHC (30-34) % RDW (13.2-15.2) % Plt Count (140-440) K/mm3 Lymph % (Auto) (13.4-35.0) % [place] % (Auto) (0.0-7.3) % Eos % (Auto) (0.0-4.3) % Baso % (Auto) (0.0-1.8) % Lymph # (1.2-5.4) K/mm3 [place] # (0.0-0.8) K/mm3 Eos # (0.0-0.4) K/mm3 Baso # (0.0-0.1) K/mm3 Seg Neutrophils % (40.0-70.0) % Seg Neutrophils # (1.8-7.7) K/mm3 Sodium (137-145) mmol/L Potassium (3.6-5.0) mmol/L Chloride (98-107) mmol/L Carbon Dioxide (22-30) mmol/L Anion Gap mmol/L BUN (7-17) mg/dL Creatinine (0.7-1.2) mg/dL Estimated GFR ml/min BUN/Creatinine Ratio % Glucose (65-100) mg/dL Calcium (8.4-10.2) mg/dL Total Bilirubin (0.1-1.2) mg/dL AST (5-40) units/L ALT (7-56) units/L Alkaline Phosphatase (35-129) units/L Total Protein (6.3-8.2) g/dL Albumin (3.9-5) g/dL Albumin/Globulin Ratio % Lipase (13-60) units/L HCG, Qual (Negative) HCG, Quant 111.6 H (0-4) mIU/mL Urine Color Yellow (Yellow) Urine Turbidity Slightly-cloudy (Clear) Urine pH 6.0 (5.0-7.0) Ur Specific [place] 1.025 (1.003-1.030) Urine Protein 30 mg/dl (Negative) mg/dL Urine Glucose (UA) Neg (Negative) mg/dL Urine Ketones Neg (Negative) mg/dL Urine Blood Neg (Negative) Urine Nitrite Neg (Negative) Urine Bilirubin Neg (Negative) Urine Urobilinogen < 2.0 (<2.0) mg/dL Ur Leukocyte Esterase Lg (Negative) Urine WBC (Auto) 59.0 H (0.0-6.0) /HPF Urine RBC (Auto) 7.0 (0.0-6.0) /HPF U Epithel Cells (Auto) 13.0 (0-13.0) /HPF Urine Bacteria (Auto) 1+ (Negative) /HPF Urine Mucus 3+ /HPF Urine culture pending Gonorrhea and chlamydia pending patient treated empirically in emergency room Wet prep with positive bacterial vaginosis, negative trichomoniasis and negative yeast - Radiology Data Radiology results: report reviewed Ultrasound OB transvaginal revealed no intrauterine gestation. Thick endometrium. Cystic structure in the lower uterine segment and indeterminant complex structures seen anterior to the uterus uncertain significance. Differential considerations include very early intrauterine gestation, blighted ova or occult ectopic . Correlation with quantitative beta hCG and additional follow-up images. Her beta hCG is positive for at 3-4 weeks. Left adnexal cyst. The gestational sac - Medical Decision Making ED course: Patient here complaining of episodic diarrhea and positive test with last menstrual period sometime in September and she states that she is late. Abdominal exam is normal and pelvic exam with vaginal and cervical discharge. Normal cervix and os is closed. Patient white count is elevated and urinalysis revealed urinary tract infection along with protein of 30 and urine. Cultures were sent. Wet prep positive bacterial vaginosis negative Trichomonas and yeast. Patient is quantitative hCG positive which puts her at 3 -4 weeks gestation. Gonorrhea and chlamydia sent and pending and patient chose to be treated for gonorrhea and chlamydia in emergency room. She was given Rocephin 1 g IV which cover her urinary tract infection and gonorrhea and she was given Christian erythromycin 1 g by mouth which covered chlamydia. BMP stable. Ultrasound could not confirm IUP suspect from early . Ultrasound report, lab work along with culture result was discussed with patient. Was understanding the diagnosis and treatment plan. Patient informed that she needs to return in 48 hours to have repeat serum hCG. I also discussed with her to return to the emergency room if she developed increasing abdominal pain, vaginal bleeding and, back pain. She voiced understanding the discharge diagnosis and treatment plan. I cannot fix/labs: Please refer radiology section for ultrasound report, please refer to left section for urinalysis and CBC and BMP Please refer to microbiology section for wet prep and gonorrhea and chlamydia. Urine Cultures sent and pending. Elvia/plan 1. Pelvic pain in early 2. Vaginal discharge in early 3. Proteinuria in 4. Acute cystitis without hematuria. 5. Leukocytosis suspect from urinary tract infection 6. Bacterial vaginosis 7. Concerns for STD in female without diagnosis. 8. Left ovarian cyst 9. Threatened miscarriage in early Patient discharged home with prescription for vitamin, Flagyl to cover bacterial vaginosis and Macrobid to cover urinary tract infection. I instructed her that she needs to follow up with [employer] and to increase her fluid intake. I also instructed her if she developed vaginal bleeding and increase in abdominal or back pain. Return to the emergency room MARLA otherwise follow up for repeat data hCG test in [address] Alexia Farooq OB/ CREDIT REVIEW OFFICER community resource consultant information given. He was also given information for [facility]. Critical care attestation.: If time is entered above; I have spent that time in minutes in the direct care of this critically ill patient, excluding procedure time. ED Disposition Disposition: DC-01 TO HOME OR SELFCARE Is pt being admited?: No Does the pt Need Aspirin: No Condition: Stable Instructions: Threatened Miscarriage (ED), Bacterial Vaginosis (ED), Ovarian Cyst (ED), Sexually Transmitted Diseases (ED), Urinary Tract Infection in Women (ED), Leukocytosis (ED), Abdominal Pain (ED) Additional Instructions: These follow-up with [employer] as directed Your is fairly early and ultrasound cannot clearly determine status of therefore he will need to return to the emergency room in 48 hours which is in 2 days to have repeat lab test done If you develop abdominal pain that is worsening, nausea and vomiting, back pain and/or vaginal discharge please return to the emergency room MARLA Please also refer to discharge instruction for referral to [facility] they also have [employer]. You have bladder infection and was prescribed antibiotics the police take antibiotic as prescribed Take Flagyl for bacterial vaginosis as prescribed Increase your fluid intake to 2-3 L of fluid preferable water per day. Start taking vitamin Due to early state ultrasound could not rule out ectopic so it's very important for you to return to the emergency room if you have in abdominal pain and vaginal bleeding in, back pain nausea or vomiting. You also have a small amount of protein in your urine and it is very important that you monitor your blood pressure because this could have negative effect on . Prescriptions: metroNIDAZOLE [Flagyl] 500 mg PO Q12HR #14 tab Nitrofurantoin [place]/M-Cryst [Macrobid CAP] 100 mg PO Q12HR #14 capsule Vit No.130/Iron/FA [ Tablet] 1 each PO QAM #30 tablet Referrals: GAEL FAROOQ MD [Staff Physician] - 11/23/16 [facility] [Outside] - 11/23/16 returned to, Emergency room [Other] - 3-5 Days (You will need repeat blood test in 48 hours which is 11/24/2016.) Forms: STI Treatment and Prevention, Work/School Release Form(ED) <BRIGITTE ESPITIA - Last Filed: 11/30/16 16:07> ED Medical Decision Making - Lab Data Result diagrams: 11/22/16 16:36 11/22/16 16:36
[2016-11-22] MEDS ORDERED: ZITHROMAX PO ONE (22:52)
--- NOTE | 2016-11-22 23:02 | Ultrasound Report ---
FINAL REPORT EXAM: US OB TRANSVAGINAL HISTORY: positive with pelvic pain TECHNIQUE: Ultrasound transvaginal obstetrical PRIORS: Correlation is made to a prior CT abdomen and pelvis April 21, 2016 FINDINGS: No focal abnormality identified within the myometrium. Uterus is 8.6 x 4.0 x 5.3 centimeters Endometrial thickness is 1.6 centimeters. No gestational sac is identified within the uterus Right ovary is 3.1 x 1.9 x 2.3 centimeters Left ovary is 3.9 x 2.6 x 2.9 centimeters. There is a 2.0 centimeters simple cyst within the left ovary Cystic structure seen in the cervix lower uterine segment possibly nabothian cyst 1.0 x 0.4 x 0.6 centimeters. Indeterminate should be followed. Left adnexal cyst is noted Hypoechoic structure anterior to the bladder and uterus noted within the pelvis significance uncertain measuring 4.0 centimeters. IMPRESSION: No intrauterine gestation identified Thickened endometrium Cystic structure in the lower uterine segment and indeterminate complex structure seen anterior to the uterus uncertain significance Differential considerations include very early intrauterine gestation, blighted ovum or occult ectopic . Correlation with quantitative beta HCG and additional follow-up imaging as clinically indicated.
--- NOTE | 2016-11-22 23:04 | Ultrasound Report ---
FINAL REPORT EXAM: US OB \T\lt; = 14 WEEKS FETUS HISTORY: positive with pelvic pain TECHNIQUE: Ultrasound pelvis transabdominal PRIORS: None. FINDINGS: No focal abnormality identified within the myometrium. Uterus is 8.6 x 4.0 x 5.3 centimeters Endometrial thickness is 1.6 centimeters. No gestational sac is identified within the uterus Right ovary is 3.1 x 1.9 x 2.3 centimeters Left ovary is 3.9 x 2.6 x 2.9 centimeters. There is a 2.0 centimeters simple cyst within the left ovary Cystic structure seen in the cervix lower uterine segment possibly nabothian cyst 1.0 x 0.4 x 0.6 centimeters. Indeterminate should be followed. Left adnexal cyst is noted Hypoechoic structure anterior to the bladder and uterus noted within the pelvis significance uncertain measuring 4.0 centimeters. IMPRESSION: No intrauterine gestation identified Thickened endometrium Cystic structure in the lower uterine segment and indeterminate complex structure seen anterior to the uterus uncertain significance Differential considerations include very early intrauterine gestation, blighted ovum or occult ectopic . Correlation with quantitative beta HCG and additional follow-up imaging as clinically indicated.
== END 2016-11-22 23:32 | disposition home or self-care (01) ==
LOC: ED 15:58
DX: O20.0 Threatened abortion (principal); N76.0 Acute vaginitis; O23.591 Infection of other part of genital tract in pregnancy, first trimester; O23.11 Infections of bladder in pregnancy, first trimester; O12.11 Gestational proteinuria, first trimester; J45.909 Unspecified asthma, uncomplicated; O99.331 Smoking (tobacco) complicating pregnancy, first trimester; Z3A.00 Weeks of gestation of pregnancy not specified
CPT/HCPCS: 36415; 76801; 76817; 80053; 81001; 83690; 84702; 84703; 85025; 87086; 87210; 87591; 96365; 99285; J0696; J7030; 87076; 87186

== ENCOUNTER 2017-01-19 17:26 | Emergency (ER) | payer MEDICAID, OTHER ==
[2017-01-19 18:36] LABS: Basophils % (Auto) 0.6 % (0.0-1.8); Eosinophils % (Auto) 1.3 % (0.0-4.3); Hematocrit 41.2 % (30.3-42.9); Hemoglobin 13.2 gm/dl (10.1-14.3); Mean Corpuscular HGB Conc 32 % (30-34); Mean Corpuscular Hemoglobin 27 pg (28-32); Mean Corpuscular Volume 85 fl (79-97); Platelet Count 328 K/mm3 (140-440); Red Blood Count 4.85 M/mm3 (3.65-5.03); Red Cell Distribution Width 14.8 % (13.2-15.2); White Blood Count 14.5 K/mm3 (4.5-11.0)
[2017-01-19 18:49] LABS: Bilirubin,Urine NEG (Negative); Blood,Urine NEG (Negative); Ketones,Urine NEG (Negative); Leukocyte Esterase,Urine SM (Negative); Nitrite,Urine NEG (Negative); Protein,Urine <15 mg/dL mg/dL (Negative); Urobilinogen,Urine < 2.0 mg/dL (<2.0)
--- NOTE | 2017-01-19 22:31 | Ultrasound Report ---
FINAL REPORT PROCEDURE: Transabdominal and transvaginal obstetrical ultrasound. TECHNIQUE: Real-time transabdominal and transvaginal sonography of the uterus, placenta, amniotic fluid, adnexa, and fetus was performed with image documentation. Measurements were obtained to determine age/size. M-mode Doppler was used to document heartbeat. [place] [address] [place] [address] HISTORY: , abdominal pain. COMPARISON: Obstetrical ultrasound 11/22/2016. FINDINGS: There is a single intrauterine fetus in cephalic presentation. Cardiac activity is documented at 154 beats per minute. The amniotic fluid volume appears normal. The placenta is anterior in location. The cervical length measures 5.7 centimeters. Both ovaries appear normal in size. There is a cyst in the left ovary measuring 2.5 centimeters x 1.7 centimeters in cross-section. The measured parameters are as follows: Biparietal diameter 2.4 centimeters, head circumference 8.5 centimeters, abdominal circumference 7.5 centimeters, femur length 1.3 centimeters. The calculated menstrual age is 14 weeks 0 days. The estimated date of confinement is 07/20/2017. IMPRESSION: Viable intrauterine with a menstrual age of 14 weeks 0 days. Left ovarian cyst..
[2017-01-19] MEDS ORDERED: MACROBID PO ONE (22:43)
[2017-01-19] MEDS ORDERED: PERCOCET 5/325 PO ONE (22:43)
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
[2017-01-20 01:57] VITALS: BP 118/82
== END 2017-01-20 00:53 | disposition home or self-care (01) ==
LOC: ED 17:26
DX: O23.41 Unspecified infection of urinary tract in pregnancy, first trimester (principal); O34.81 Maternal care for other abnormalities of pelvic organs, first trimester; N83.202 Unspecified ovarian cyst, left side; O99.511 Diseases of the respiratory system complicating pregnancy, first trimester; O99.331 Smoking (tobacco) complicating pregnancy, first trimester; Z3A.14 14 weeks gestation of pregnancy; Z90.49 Acquired absence of other specified parts of digestive tract; Z88.5 Allergy status to narcotic agent; Z91.041 Radiographic dye allergy status
CPT/HCPCS: 36415; 76805; 81001; 84703; 85025

== ENCOUNTER 2017-05-25 15:48 | Outpatient (CLI) | payer MEDICAID ==
[2017-05-25] MEDS ORDERED: LACTATED RINGERS 500 ML IV ONE (16:53)
[2017-05-25 17:20] LABS: Amorphous Crystals,Urine Few; Bacteria,Urine 1+ /HPF (Negative); Bilirubin,Urine NEG (Negative); Blood,Urine NEG (Negative); Color,Urine Yellow (Yellow); Mucus,Urine 1+ /HPF; Protein,Urine <15 mg/dL mg/dL (Negative); Urobilinogen,Urine < 2.0 mg/dL (<2.0)
--- NOTE | 2017-05-25 19:15 | Ultrasound Report ---
FINAL REPORT EXAM: US OB BPP WO NON-STRESS HISTORY: well being, placenta, DAVID TECHNIQUE: Ultrasound biophysical profile PRIORS: None. FINDINGS: Single live intrauterine gestation is present with heart rate of 140 beats per minute Biophysical profile was performed respiratory motion 2 Body movement 2 tone 2 Amniotic fluid volume 2 Total 11/07 Impression Normal biophysical profile 11/07
--- NOTE | 2017-05-25 19:16 | Ultrasound Report ---
FINAL REPORT EXAM: US OB LIMITED HISTORY: well being, placenta, DAVID TECHNIQUE: Ultrasound obstetrical transabdominal PRIORS: None. FINDINGS: Single live intrauterine gestation present cephalic position cardiac activity present heart rate 135 beats per minute Amniotic fluid index is within normal limits 9.5 centimeters The placenta is right lateral Complete survey not performed IMPRESSION: Single live intrauterine gestation in cephalic position Normal amniotic fluid index
[2017-05-25 19:20] VITALS: BP 146/65
== END 2017-05-25 19:40 | disposition home or self-care (01) ==
LOC: TRG 15:48 → LD 15:49 → TRG 19:40
PROVIDERS: ATTEND Obstetrics & Gynecology
DX: O99.333 Smoking (tobacco) complicating pregnancy, third trimester (principal); F17.200 Nicotine dependence, unspecified, uncomplicated; O47.03 False labor before 37 completed weeks of gestation, third trimester; Z3A.32 32 weeks gestation of pregnancy
CPT/HCPCS: 59025; 76815; 76819; 81001; J7120

== ENCOUNTER 2017-06-14 22:52 | Outpatient (CLI) | payer MEDICAID ==
[2017-06-14 23:17] VITALS: BP 135/66
[2017-06-15] MEDS ORDERED: XYLOCAINE 2% INFILTRATI ONE (00:33)
[2017-06-15] MEDS ORDERED: LACTATED RINGERS 500 ML IV ONE (01:18)
[2017-06-15] MEDS ORDERED: PERCOCET 5/325 PO ONE (01:37)
== END 2017-06-15 02:00 | disposition home or self-care (01) ==
LOC: TRG 22:52
PROVIDERS: ATTEND Obstetrics & Gynecology
DX: O99.333 Smoking (tobacco) complicating pregnancy, third trimester (principal); F17.200 Nicotine dependence, unspecified, uncomplicated; O47.03 False labor before 37 completed weeks of gestation, third trimester; Z3A.35 35 weeks gestation of pregnancy
CPT/HCPCS: 59025; 87116

== ENCOUNTER 2017-07-08 09:57 | Outpatient (CLI) | payer SELFPAY ==
[2017-07-08 10:17] VITALS: BP 126/58
--- NOTE | 2017-07-08 15:07 | Ultrasound Report ---
FINAL REPORT EXAM: US OB BPP WO NON-STRESS HISTORY: DAVID TECHNIQUE: Grayscale and color doppler ultrasound of the fetus was performed for biophysical profile. PRIORS: Ob ultrasound from 05/25/2017. FINDINGS: A single, live intrauterine fetus is present with a heart rate of 140 beats per minute. Estimated gestational age is 38 weeks and 2 days with an MAXIMO of 07/20/2017. biophysical profile score of 8 out of 8 was noted. Scores of 2 out of 2 were given for breathing movements, movements, posterior and tone and qualitative amniotic fluid volume. IMPRESSION: Normal biophysical profile.
--- NOTE | 2017-07-08 15:20 | Ultrasound Report ---
FINAL REPORT EXAM: US OB LIMITED HISTORY: DAVID TECHNIQUE: Limited OB ultrasound was performed. PRIORS: 05/25/2017. FINDINGS: A live intrauterine fetus is present in cephalic presentation with a heart rate of 136 beats per minute. Amniotic fluid index is 8.6 centimeters. Estimated gestational age is 38 weeks and 2 days with an MAXIMO of 07/20/2017. IMPRESSION: Amniotic fluid index of 8.6 centimeters.
== END 2017-07-08 12:25 | disposition home or self-care (01) ==
LOC: TRG 09:57
PROVIDERS: ATTEND Obstetrics & Gynecology
DX: O47.1 False labor at or after 37 completed weeks of gestation (principal); Z3A.38 38 weeks gestation of pregnancy
CPT/HCPCS: 59025; 76815; 76819

== ENCOUNTER 2017-07-18 11:30 | Inpatient (IN) | payer MEDICAID ==
[2017-07-19] MEDS ORDERED: PEPCID IV ONE (06:25)
[2017-07-19] MEDS ORDERED: REGLAN IV ONE (06:25)
[2017-07-19] MEDS ORDERED: BICITRA PO ONE (06:25)
[2017-07-19] MEDS ORDERED: PITOCin/NS 20 UNIT/1000ML DRIP 20 UNITS/1,000 ML BAG IV SCH ×2 (07:00→10:00)
[2017-07-19] MEDS ORDERED: ANCEF/STERILE WATER 2 GM/20 ML 2 GM/20 ML SYRINGE IV NR (07:00)
[2017-07-19 07:15] LABS: Basophils # (Auto) 0.1 K/mm3 (0.0-0.1); Basophils % (Auto) 0.7 % (0.0-1.8); Eosinophils # (Auto) 0.2 K/mm3 (0.0-0.4); Eosinophils % (Auto) 1.5 % (0.0-4.3); Hematocrit 32.9 % (30.3-42.9); Hemoglobin 10.5 gm/dl (10.1-14.3); Lymphocytes # (Auto) 2.8 K/mm3 (1.2-5.4); Lymphocytes % (Auto) 20.4 % (13.4-35.0); Mean Corpuscular HGB Conc 32 % (30-34); Mean Corpuscular Volume 81 fl (79-97); Monocytes # (Auto) 0.8 K/mm3 (0.0-0.8); Monocytes % (Auto) 6.1 % (0.0-7.3); Platelet Count 301 K/mm3 (140-440); Red Blood Count 4.07 M/mm3 (3.65-5.03); Red Cell Distribution Width 16.2 % (13.2-15.2)
[2017-07-19] MEDS: LACTATED RINGERS 1,000 ML IV SCH ×2 (07:15→07:24)
[2017-07-19 07:16] LABS: Mean Corpuscular Hemoglobin 26 pg (28-32)
[2017-07-19] MEDS ORDERED: BENADRYL IV PRN (07:30)
[2017-07-19] MEDS ORDERED: NARCAN 0.4 MG/1 ML IV PRN ×2 (07:30→09:08)
[2017-07-19] MEDS ORDERED: DILAUDID IV PRN (07:30)
[2017-07-19] MEDS ORDERED: PHENERGAN PO PRN (07:30)
[2017-07-19] MEDS ORDERED: PHENERGAN PR PRN (07:30)
[2017-07-19] MEDS ORDERED: ZOFRAN IV PRN (07:30)
--- NOTE | 2017-07-19 07:30 | Anesthesia Consultation ---
Anesthesia Consult and Med Hx Date of service: 07/19/17 - Airway Anesthetic Teeth Evaluation: Good ROM Head & Neck: Adequate Mental/Hyoid Distance: Adequate Mallampati Class: Class III Intubation Access Assessment: Possibly Difficult - Pre-Operative Health Status ASA Pre-Surgery Classification: ASA3 Proposed Anesthetic Plan: Epidural, Spinal - Pulmonary Hx Smoking: Yes (quit smoking 1 month ago) Hx Asthma: Yes COPD: No Hx Pneumonia: No - Cardiovascular System Hx Hypertension: No - Central Nervous System Hx Seizures: No Hx Psychiatric Problems: No - Endocrine Hx Renal Disease: No Hx End Stage Renal Disease: No Hx Hypothyroidism: No Hx Hyperthyroidism: No - Hematic Hx Anemia: No Hx Sickle Cell Disease: No - Other Systems Hx Alcohol Use: No Hx Obesity: Yes (BMI 48.4)
--- NOTE | 2017-07-19 07:30 | Anesthesia Day of Surgery ---
Anesthesia Day of Surgery - Day of Surgery Patient Examined: Yes Patient H&P Reviewed: Yes Patient is NPO: Yes
[2017-07-19] MEDS ORDERED: SUBLIMAZE ONE (07:51)
--- NOTE | 2017-07-19 07:55 | History and Physical Report ---
History of Present Illness Date of examination: 07/19/17 Date of admission: 07/19/17 05:09 Chief complaint: Scheduled C Section History of present illness: Pt is a 31yo BF EDC 07/20/17; EGA 39 6/7 weeks presents for a Repeat C Section. She received late care at [facility] since 25 weeks and course has been unremarkable except for morbid obesity. records are available and GBS is positive. Past History Past Medical History: other (Morbid obesity) Past Surgical History: appendectomy, cholecystectomy, section Family/Genetic History: sickle cell/trait Social history: no significant social history, single - Obstetrical History Expected Date of Delivery: 07/20/17 Actual Gestation: 39 Week(s) 6 Day(s) : 3 Medications and Allergies Allergies Allergy/AdvReac Type Severity Reaction Status Date / Time Iodinated Contrast- Oral and Allergy Itching Verified 07/19/17 07:01 IV Dye [Iodinated Contrast Media - IV Dye] morphine Allergy Itching Verified 07/19/17 07:01 Home Medications Medication Instructions Recorded Confirmed Last Taken Type Pnv,Calcium 72/Iron/Folic Acid 1 tab PO DAILY 07/08/17 07/08/17 07/08/17 08:00 History [Pnv Plus Multivit Tab] 1 Ferrous Sulfate [Feosol 325 MG tab] 325 mg PO BID #60 tablet 07/19/17 Unknown Rx HYDROcodone/APAP 5-325 [[place] 1 each PO Q6HR PRN #30 tablet 07/19/17 Unknown Rx 5/325] Ibuprofen [Motrin] 800 mg PO Q8HR PRN #30 tablet 07/19/17 Unknown Rx Vit Calc,Iron,Folic 1 each PO DAILY #30 tablet 07/19/17 Unknown Rx [ Vitamins] Active Meds: Active Medications Diphenhydramine HCl (Benadryl) 12.5 mg IV Q2H PRN PRN Reason: Itching Hydromorphone HCl (Dilaudid) 0.5 mg IV Q5M PRN PRN Reason: Breakthrough Pain Lactated Ringer's (Lactated Ringers) 1,000 mls @ 2,250 mls/hr IV PREOP BRIANNE Stop: 07/20/17 07:27 Last Admin: 07/19/17 07:24 Dose: 2,250 mls/hr Oxytocin/Sodium Chloride (Pitocin/Ns 20 Unit/1000ml Drip) 20 units in 1,000 mls @ 0 mls/hr IV TITR BRIANNE Cefazolin Sodium (Ancef/Sterile Water 2 Gm/20 Ml) 2 gm in 20 mls @ 80 mls/hr IV PREOP NR; Protocol Stop: 07/19/17 21:00 Naloxone HCl (Narcan 0.4 Mg/1 Ml) 0.2 mg IV Q2MIN PRN PRN Reason: Res Rate </= 8 or 02 SAT < 92% Ondansetron HCl (Zofran) 4 mg IV Q8H PRN PRN Reason: Nausea And Vomiting Promethazine HCl (Phenergan) 25 mg PO Q6H PRN PRN Reason: Nausea And Vomiting Promethazine HCl (Phenergan) 25 mg OR Q6H PRN PRN Reason: Nausea And Vomiting Sodium Chloride (Sodium Chloride Flush Syringe 10 Ml) 10 ml IV PRN NR Review of Systems All systems: negative - Vital Signs Vital signs: Vital Signs Temp Pulse Resp BP Pulse Ox 97.8 F 80 19 121/59 97 07/19/17 05:55 07/19/17 05:55 07/19/17 05:55 07/19/17 05:55 07/19/17 05:55 Temp Pulse Resp BP Pulse Ox 97.8 F 80 19 121/59 97 07/19/17 05:55 07/19/17 05:55 07/19/17 05:55 07/19/17 05:55 07/19/17 05:55 - Physical Exam Breasts: Positive: deferred Cardiovascular: Regular rate Lungs: Positive: Clear to auscultation Abdomen: Positive: normal appearance Genitourinary (Female): Positive: normal external genitalia Vagina: Positive: normal moisture Uterus: Positive: enlarged Extremities: Positive: normal - Obstetrical FHR: category 1 Uterine Contraction Monitor Mode: External Results Result Diagrams: 07/19/17 06:55 Abnormal lab results 07/19/17 Range/Units 06:55 WBC 13.7 H (4.5-11.0) K/mm3 MCH 26 L (28-32) pg RDW 16.2 H (13.2-15.2) % Seg Neutrophils % 71.3 H (40.0-70.0) % Seg Neutrophils # 9.8 H (1.8-7.7) K/mm3 All other labs normal. Assessment and Plan - Patient Problems (1) 39 weeks gestation of Onset Date: 07/19/17 Current Visit: Yes Status: Acute Plan to address problem: A: IUP @ 39 6/7 weeks Previous C Section Morbid obesity P: Admit to L&D for a Repeat C Section (2) Morbid obesity Onset Date: 07/19/17 Current Visit: Yes Status: Acute (3) Previous section Onset Date: 07/19/17 Current Visit: Yes Status: Acute
[2017-07-19] MEDS ORDERED: SODIUM CHLORIDE FLUSH SYRINGE 10 ML IV SCH (08:00)
[2017-07-19] MEDS ORDERED: ANCEF/STERILE WATER 2 GM/20 ML IV ONE (08:10)
[2017-07-19] MEDS ORDERED: NACL 0.9% IR ONE (08:18)
[2017-07-19] MEDS ORDERED: WATER FOR IRRIG STERILE IR ONE (08:18)
[2017-07-19] MEDS ORDERED: NEO SYNEPHRINE/NS Syringe(OR USE) IV ONE ×2 (08:47)
[2017-07-19] MEDS ORDERED: LANSINOH TP PRN (09:08)
[2017-07-19] MEDS ORDERED: MYLICON PO PRN (09:08)
[2017-07-19] MEDS ORDERED: TORADOL IV PRN (09:08)
[2017-07-19] MEDS ORDERED: TYLENOL PO PRN (09:08)
[2017-07-19] MEDS ORDERED: MILK OF MAGNESIA PO PRN (09:08)
[2017-07-19] MEDS ORDERED: NORCO 5/325 PO PRN (09:08)
[2017-07-19] MEDS ORDERED: SENOKOT PO PRN (09:08)
[2017-07-19] MEDS ORDERED: TUCKS PAD TP PRN (09:08)
--- NOTE | 2017-07-19 09:17 | Operative Report ---
Operative Report Operative Report: Date of procedure: 07/19/2017 Pre-operative diagnosis: 1. Intrauterine at 39-6/7 weeks 2. Previous 3. Morbid obesity Post-operative diagnosis: Same Procedure name(s): Repeat low transverse section Surgeon: David Edmondson MD Farmworkers: None Anesthesia: Spinal anesthesia by JULIET Davis EBL: 700 mL's Findings: A 2902 g male Apgars 8 at 1 minute and 9 at 5 minutes. Clear amniotic fluid. Normal uterus. Normal tubes and ovaries bilaterally. Procedure: After the patient was prepped and draped in usual sterile fashion, and after satisfactory level of epidural anesthesia was obtained, the skin knife was used to make a transverse skin incision through the previous skin scar. The incision was excised down to layer of the fascia, which was nicked in the midline and extended laterally using the Bovie cautery. The rectus muscles were dissected off the rectus fascia both superiorly and inferiorly. The rectus bellies in the midline, and the peritoneum was entered under direct visualization. The peritoneal incision was extended superiorly and inferiorly. A bladder flap was created and the bladder blade was then placed. The uterus was scored in a curvilinear linear fashion, entered in the midline revealing clear amniotic fluid. The infant's head was delivered onto the surgical field with the aid of a vacuum, and the oropharynx and nasopharynx were bulb suctioned. The rest of the 's body was delivered, cord was doubly clamped and cut and the infant was handed to the waiting respiratory team. Cord blood was then obtained. The placenta was manually removed from the uterus, and the uterus removed from its normal anatomical position. After gentle uterine lavage, the incision was inspected and found to be without extensions. It was then closed in 2 layers using 0 Vicryl suture in a running interlocking fashion, the second layer imbricating the first. After good hemostasis was achieved, copious amounts or irrigation was performed, and the gutters were suctioned free of blood and blood clots. The Tisseel sealant was sprayed across the uterine incision. The uterus was then returned to its normal anatomical position, and after excellent hemostasis assured, the peritoneum was re-approximated using 3-0 Vicryl suture in a running interlocking fashion, and then the rectus muscles were re-approximated using 3- 0 Vicryl suture in a [id number] configuration. The fascia was then re- approximated using 0 Vicryl suture in running interlocking fashion. The subcutaneous layer was made hemostatic using Bovie cautery, the Tisseel sealant was sprayed across the fascial incision and the skin edges re-approximated using 4-0 Vicryl suture in a sub-cuticular fashion. Patient tolerated the procedure well was transported to recovery in stable condition.
[2017-07-19] MEDS ORDERED: ANCEF/NS 1 GM/50 ML 1 GM/50 ML BAG IV SCH (10:00)
[2017-07-19] MEDS ORDERED: SODIUM CHLORIDE FLUSH SYRINGE 10 ML IV NR (10:00)
[2017-07-19] MEDS: PERCOCET 5/325 PO PRN ×2 (12:55→18:26)
[2017-07-19] MEDS: FEOSOL PO SCH (16:10)
[2017-07-19] MEDS: PRENATAL VITAMIN PO SCH (16:10)
[2017-07-19] MEDS: ceFAZolin 1 GM in NACL 0.9% 20 ML IV SCH (16:11)
[2017-07-19] MEDS: D5LR 1,000 ML IV SCH ×2 (16:57→22:03)
[2017-07-19] MEDS ORDERED: D5LR 1,000 ML IV SCH (18:00)
[2017-07-19] MEDS: MOTRIN PO PRN (18:25)
[2017-07-19 21:28] LABS: Hemoglobin 9.8 gm/dl (10.1-14.3)
[2017-07-20] MEDS: ceFAZolin 1 GM in NACL 0.9% 20 ML IV SCH
[2017-07-20] MEDS: PERCOCET 5/325 PO PRN ×5 (00:01→23:30)
[2017-07-20] MEDS: MOTRIN PO PRN ×4 (04:06→23:29)
[2017-07-20] MEDS ORDERED: BOOSTRIX IM ONE (06:00)
--- NOTE | 2017-07-20 09:07 | Progress Note ---
Assessment and Plan - Patient Problems (1) 39 weeks gestation of Onset Date: 07/19/17 Current Visit: Yes Status: Resolved (2) Morbid obesity Onset Date: 07/19/17 Current Visit: Yes Status: Chronic (3) Previous section Onset Date: 07/19/17 Current Visit: Yes Status: Resolved (4) Status post Onset Date: 07/20/17 Current Visit: Yes Status: Resolved Plan to address problem: A: S/P Repeat C Section - POD #1 Doing well Asymptomatic anemia - stable P: Continue RPOC Anticipate discharge in 24-48hrs Subjective - Subjective Date of service: 07/20/17 Principal diagnosis: s/p Repeat C Section - POD #1 Interval history: Pt is feeling well without complaints. Bleeding improved. Tolerating a liquid diet without nausea or vomiting. Patient reports: appetite normal, voiding normally, pain well controlled, flatus , ambulating normally [place]: doing well, bottle feeding Objective - Vital Signs Latest vital signs: Vital Signs Temp Pulse Resp BP BP Pulse Ox 07/20/17 06:06 20 07/20/17 04:06 18 07/20/17 01:01 18 07/20/17 00:15 22 F L 70 22 105/55 07/20/17 00:01 18 07/19/17 20:04 98.1 F 72 18 119/63 07/19/17 18:20 98.5 F 75 22 99/63 99 07/19/17 17:13 98.3 F 70 20 92/51 97 07/19/17 10:30 97.5 F L 71 16 127/66 100 07/19/17 10:21 57 L 12 101/54 100 07/19/17 10:06 65 15 106/53 100 07/19/17 09:40 58 L 11 L 90/48 100 07/19/17 09:35 85 23 98/48 100 07/19/17 09:30 64 22 89/47 99 07/19/17 09:25 64 20 94/46 99 07/19/17 09:18 97.8 F 63 16 94/44 90 Intake and Output 07/19/17 07/20/17 07/20/17 22:59 06:59 14:59 Intake Total 1357.5 240 Output Total 1350 Balance 7.5 240 Intake: IV 637.5 D5lr 1,000 ml @ 125 mls/ 637.5 hr IV DIRECT BRIANNE Rx#: [id number] Oral 480 Intake, Free Water 240 240 Output: Urine 1350 Indwelling Catheter 1350 Other: Total, Intake Amount 480 Total, Output Amount 800 - Exam Breasts: Present: deferred Cardiovascular: Present: Regular rate Lungs: Present: Clear to auscultation Abdomen: Present: normal appearance, soft Uterus: Present: normal, firm, fundal height below umbilicus Extremities: Present: normal Incision: Present: normal, dry, intact, dressed - Labs Labs: Abnormal lab results 07/19/17 Range/Units 21:05 Hgb 9.8 L (10.1-14.3) gm/dl Laboratory Tests 07/19/17 07/19/17 07/19/17 06:55 06:55 21:05 WBC 13.7 H RBC 4.07 Hgb 10.5 9.8 L Hct 32.9 31.0 MCV 81 MCH 26 L MCHC 32 RDW 16.2 H Plt Count 301 Lymph % (Auto) 20.4 [place] % (Auto) 6.1 Eos % (Auto) 1.5 Baso % (Auto) 0.7 Lymph # 2.8 [place] # 0.8 Eos # 0.2 Baso # 0.1 Seg Neutrophils % 71.3 H Seg Neutrophils # 9.8 H Blood Type O POSITIVE Antibody Screen Negative
[2017-07-20] MEDS ORDERED: M-M-R II VACCINE SUB-Q ONE (09:09)
[2017-07-20] MEDS: FEOSOL PO SCH (10:30)
[2017-07-20] MEDS: PRENATAL VITAMIN PO SCH (10:30)
[2017-07-21] MEDS: MOTRIN PO PRN ×3 (05:46→18:36)
[2017-07-21] MEDS: PERCOCET 5/325 PO PRN ×3 (05:46→18:35)
--- NOTE | 2017-07-21 09:09 | Progress Note ---
Assessment and Plan - Patient Problems (1) 39 weeks gestation of Onset Date: 07/19/17 Current Visit: Yes Status: Resolved (2) Morbid obesity Onset Date: 07/19/17 Current Visit: Yes Status: Chronic (3) Previous section Onset Date: 07/19/17 Current Visit: Yes Status: Resolved (4) Status post Onset Date: 07/20/17 Current Visit: Yes Status: Resolved Plan to address problem: A: S/P Repeat C Section - POD #2 Doing well Asymptomatic anemia - stable P: May go home tomorrow Subjective - Subjective Date of service: 07/21/17 Principal diagnosis: s/p Repeat C Section - POD #2 Interval history: Pt is feeling well without complaints. Bleeding improved. Tolerating a reg diet without nausea or vomiting, ambulating and voiding without difficulty. Patient reports: appetite normal, voiding normally, pain well controlled, flatus , ambulating normally [place]: doing well, bottle feeding Objective - Vital Signs Latest vital signs: Vital Signs Temp Pulse Resp BP Pulse Ox 07/20/17 23:30 98.7 F 72 18 116/79 07/20/17 15:57 98.1 F 76 20 121/65 97 Intake and Output 07/20/17 07/21/17 07/21/17 22:59 06:59 14:59 Intake Total 200 500 Balance 200 500 Intake: Oral 200 200 Intake, Free Water 300 Other: Total, Intake Amount 200 200 # Voids Void 1 - Exam Breasts: Present: deferred Cardiovascular: Present: Regular rate Lungs: Present: Clear to auscultation Abdomen: Present: normal appearance, soft Uterus: Present: normal, firm, fundal height below umbilicus Incision: Present: normal, intact, other (oozing @ right margin)
--- NOTE | 2017-07-21 11:16 | Discharge Summary ---
Providers - Providers Date of Admission: 07/19/17 05:09 Date of discharge: 07/22/17 Attending physician: EUSEBIA KRAFT Primary care physician: EUSEBIA KRAFT Hospitalization Reason for admission: section, IUP at term Delivery: Procedure: section, repeat low transverse Incision: normal, dry, intact Other procedures: none complications: none Discharge diagnosis: IUP at term delivered baby: male Hospital course: Pt is a 31yo BF EDC 07/20/17; EGA 39 6/7 weeks who presented for a Repeat C Section. She received late care at [facility] since 25 weeks and course has been unremarkable except for morbid obesity. She underwent an uncomplicated Repeat C Section and tolerated the procedure well. Post operative course was unremarkable and by POD #2 she was tolerating a reg diet without nausea or vomiting, ambulating and voiding without difficulty. She will therefore be discharged to home on POD #3 if she remains in stable condition. Condition at discharge: Good Disposition: DC-01 TO HOME OR SELFCARE - Discharge Diagnoses (1) 39 weeks gestation of Status: Resolved (2) Morbid obesity Status: Chronic (3) Previous section Status: Resolved (4) Status post Status: Resolved Plan - Discharge Medications Prescriptions: Ferrous Sulfate [Feosol 325 MG tab] 325 mg PO BID #60 tablet HYDROcodone/APAP 5-325 [[place] 5/325] 1 each PO Q6HR PRN #30 tablet PRN Reason: Pain Ibuprofen [Motrin] 800 mg PO Q8HR PRN #30 tablet PRN Reason: Moder Pain Unrelieved By [place] Vit Calc,Iron,Folic [ Vitamins] 1 each PO DAILY #30 tablet - Provider Discharge Summary Activity: routine, no sex for 6 weeks, no heavy lifting 4 weeks, no strenuous exercise Diet: routine Instructions: routine Additional instructions: [] Smoking cessation referral if applicable(refer to patient education folder for contact #) [] Refer to [facility] Booklet Call your doctor immediately for: * Fever > 100.5 * Heavy vaginal bleeding ( >1 pad per hour) * Severe persistent headache * Shortness of breath * Reddened, hot, painful area to leg or breast * Drainage or odor from incision. * Keep incision clean and dry at all times and follow doctor's instructions regarding bathing/showering - Follow up plan Follow up: EUSEBIA KRAFT MD [Primary Care Provider] - 7 Days
[2017-07-21] MEDS: FEOSOL PO SCH (12:40)
[2017-07-21] MEDS: PRENATAL VITAMIN PO SCH (18:36)
[2017-07-22] MEDS: MOTRIN PO PRN ×3 (00:01→11:28)
[2017-07-22] MEDS: PERCOCET 5/325 PO PRN ×3 (00:02→11:29)
[2017-07-22 09:53] VITALS: BP 139/83
[2017-07-22] MEDS: PRENATAL VITAMIN PO SCH (11:28)
[2017-07-22] MEDS: FEOSOL PO SCH (11:28)
== END 2017-07-22 12:00 | disposition home or self-care (01) | DRG 765 ==
LOC: EEVIPCON 07-19 05:09 → APU 07-19 05:09 → OB 07-19 10:41
PROVIDERS: ADMIT Obstetrics & Gynecology; ATTEND Obstetrics & Gynecology
PROC: 10D00Z1 Extraction of Products of Conception, Low, Open Approach (ICD-10-PCS; principal; 2017-07-19)
PROC: 3E0234Z Introduction of Serum, Toxoid and Vaccine into Muscle, Percutaneous Approach (ICD-10-PCS; 2017-07-20)
DX: O34.211 Maternal care for low transverse scar from previous cesarean delivery (principal); Z68.42 Body mass index [BMI] 45.0-49.9, adult; O99.824 Streptococcus B carrier state complicating childbirth; O99.214 Obesity complicating childbirth; E66.01 Morbid (severe) obesity due to excess calories; Z3A.39 39 weeks gestation of pregnancy; Z37.0 Single live birth; Z23 Encounter for immunization; Z90.49 Acquired absence of other specified parts of digestive tract; Z88.5 Allergy status to narcotic agent; Z91.041 Radiographic dye allergy status; O90.81 Anemia of the puerperium; D64.9 Anemia, unspecified; Z87.891 Personal history of nicotine dependence
CPT/HCPCS: 36415; 85014; 85018; 85025; 86850; 86900; 86901; C9250; J0690; J1170; J1885; J2370; J2405; J2590; J2765; J3010; J7120; J7121

== ENCOUNTER 2017-08-16 18:40 | Emergency (ER) | payer MEDICAID ==
[2017-08-16 19:20] VITALS: BP 148/100
--- NOTE | 2017-08-16 20:14 | Emergency Department Report ---
ED General Adult HPI - General Chief complaint: Wound/Laceration Stated complaint: REOPENED Time Seen by Provider: 08/16/17 20:12 Source: patient Mode of arrival: Ambulatory Limitations: No Limitations - History of Present Illness Initial comments: Patient been having green drainage and increased pain from incision from July 19, which dehisced approximately 2 weeks ago, and has been draining since, and she is having increased pain. There has not been any fever chills or diaphoresis, she's been tolerating foods, no dysuria, no vaginal discharge. Severity scale (0 -10): 0 - Related Data Home Medications Medication Instructions Recorded Confirmed Last Taken Pnv,Calcium 72/Iron/Folic Acid 1 tab PO DAILY 07/08/17 07/19/17 2 Days Ago [Pnv Plus Multivit Tab] ~07/17/17 Previous Rx's Medication Instructions Recorded Last Taken Type Ferrous Sulfate [Feosol 325 MG tab] 325 mg PO BID #60 tablet 07/19/17 Unknown Rx HYDROcodone/APAP 5-325 [[place] 1 each PO Q6HR PRN #30 tablet 07/19/17 Unknown Rx 5/325] Ibuprofen [Motrin] 800 mg PO Q8HR PRN #30 tablet 07/19/17 Unknown Rx Vit Calc,Iron,Folic 1 each PO DAILY #30 tablet 07/19/17 Unknown Rx [ Vitamins] Benzethonium Chloride [Saline 210 ml TP DAILY #10 cleanser 08/16/17 Unknown Rx Wound Wash] Oxycodone HCl/Acetaminophen 1 each PO Q4-6H PRN #30 tablet 08/16/17 Unknown Rx [Endocet 7.5-325 mg Tablet] Sulfamethoxazole/Trimethoprim 1 each PO BID #20 tablet 08/16/17 Unknown Rx [Bactrim DS TAB] Allergies Allergy/AdvReac Type Severity Reaction Status Date / Time Iodinated Contrast- Oral and Allergy Itching Verified 07/19/17 07:01 IV Dye [Iodinated Contrast Media - IV Dye] morphine Allergy Itching Verified 07/19/17 07:01 ED Review of Systems ROS: Stated complaint: REOPENED Other details as noted in HPI Constitutional: denies: chills, fever ENT: as per HPI Respiratory: denies: cough, shortness of breath, wheezing Cardiovascular: denies: chest pain, palpitations Endocrine: no symptoms reported Gastrointestinal: abdominal pain (at section and incision, dehisced) Genitourinary: denies: urgency, dysuria Skin: denies: rash, lesions Neurological: denies: headache, weakness, paresthesias Psychiatric: denies: anxiety, depression ED Past Medical Hx - Past Medical History Previous Medical History?: Yes Hx Hypertension: No Hx Congestive Heart Failure: No Hx Diabetes: No Hx Deep Vein Thrombosis: No Hx Renal Disease: No Hx Sickle Cell Disease: No Hx Seizures: No Hx Asthma: Yes Hx COPD: No Hx HIV: No - Surgical History Past Surgical History?: Yes Hx Cholecystectomy: Yes Hx Appendectomy: Yes Additional Surgical History: 2014, 2017 - Social History Smoking Status: Current Every Day Smoker Substance Use Type: Prescribed - Medications Home Medications: Home Medications Medication Instructions Recorded Confirmed Last Taken Type Pnv,Calcium 72/Iron/Folic Acid 1 tab PO DAILY 07/08/17 07/19/17 2 Days Ago History [Pnv Plus Multivit Tab] ~07/17/17 Ferrous Sulfate [Feosol 325 MG tab] 325 mg PO BID #60 tablet 07/19/17 Unknown Rx HYDROcodone/APAP 5-325 [[place] 1 each PO Q6HR PRN #30 tablet 07/19/17 Unknown Rx 5/325] Ibuprofen [Motrin] 800 mg PO Q8HR PRN #30 tablet 07/19/17 Unknown Rx Vit Calc,Iron,Folic 1 each PO DAILY #30 tablet 07/19/17 Unknown Rx [ Vitamins] Benzethonium Chloride [Saline 210 ml TP DAILY #10 cleanser 08/16/17 Unknown Rx Wound Wash] Oxycodone HCl/Acetaminophen 1 each PO Q4-6H PRN #30 tablet 08/16/17 Unknown Rx [Endocet 7.5-325 mg Tablet] Sulfamethoxazole/Trimethoprim 1 each PO BID #20 tablet 08/16/17 Unknown Rx [Bactrim DS TAB] ED Physical Exam - General Limitations: No Limitations General appearance: alert, in distress (moderate discomfort, but moves fairly well around on stretcher) - Head Head exam: Present: atraumatic, normocephalic - Eye Eye exam: Present: PERRL, EOMI - ENT ENT exam: Present: normal exam - Neck Neck exam: Present: normal inspection. Absent: tenderness - Respiratory Respiratory exam: Present: normal lung sounds bilaterally - Cardiovascular Cardiovascular Exam: Present: regular rate, normal heart sounds - GI/Abdominal GI/Abdominal exam: Present: tenderness, other (partial dehiscence, central portion of incision, minimal acute drainage, no purulence, no foul smell, obese general) - Rectal Rectal exam: Present: deferred - Extremities Exam Extremities exam: Present: normal inspection - Back Exam Back exam: Present: normal inspection - Neurological Exam Neurological exam: Present: alert, oriented X3, CN II-XII intact. Absent: motor sensory deficit - Psychiatric Psychiatric exam: Present: normal affect, normal mood - Skin Skin exam: Present: warm, dry ED Course Vital Signs 08/16/17 08/16/17 08/16/17 18:47 19:03 19:16 Temperature 98.7 F Pulse Rate 85 84 Respiratory 20 20 Rate Blood Pressure 162/103 148/100 Blood Pressure [Left] O2 Sat by Pulse 98 98 98 Oximetry 08/16/17 08/16/17 08/16/17 19:19 19:30 19:46 Temperature 98.7 F Pulse Rate 88 77 67 Respiratory 16 25 H 21 Rate Blood Pressure 148/100 148/100 Blood Pressure 148/100 [Left] O2 Sat by Pulse 98 96 98 Oximetry 08/16/17 19:54 Temperature Pulse Rate Respiratory 16 Rate Blood Pressure Blood Pressure [Left] O2 Sat by Pulse 96 Oximetry ED Medical Decision Making - Lab Data Result diagrams: 08/16/17 21:17 08/16/17 21:17 - Radiology Data Radiology results: report reviewed (patient shows no findings of acute intra- abdominal pathology on noncontrast CT, which is limited by patient's preceding allergy, but there is no finding suggestive of obstruction, adhesions, free air , or abscess intra-abdominally as well. There is a small amount of stranding around the wound, and a small amount of fluid, but this would be compatible with patient's present condition.) - Medical Decision Making Patient has a chronic wound dehiscence, which is tender, but without fluctuance , and minimal drainage. Laboratory evaluation is unremarkable, and CT scan shows no findings to suggest significant abscess or cellulitis. Patient will be treated with single dose of Rocephin, and will be discharged on oral Bactrim and analgesics, and we will place patient on wet-to-dry dressings, and initial dressing placed here. - Differential Diagnosis wound infection, wound abscess, intra-abdominal abscess, Critical Care Time: No Critical care attestation.: If time is entered above; I have spent that time in minutes in the direct care of this critically ill patient, excluding procedure time. ED Disposition Clinical Impression: Dehiscence of section wound, Disposition: TO HOME OR SELFCARE Is pt being admited?: No Does the pt Need Aspirin: No Condition: Stable Instructions: Wound Dehiscence (ED) Additional Instructions: Apply wet to dry dressings daily, take Bactrim for infection, and take oxycodone for pain. Recheck with your supply chain tech either tomorrow or at the beginning of the next week. Prescriptions: Benzethonium Chloride [Saline Wound Wash] 210 ml TP DAILY #10 cleanser Oxycodone HCl/Acetaminophen [Endocet 7.5-325 mg Tablet] 1 each PO Q4-6H PRN #30 tablet PRN Reason: Pain Sulfamethoxazole/Trimethoprim [Bactrim DS TAB] 1 each PO BID #20 tablet Time of Disposition: 22:57
[2017-08-16] MEDS ORDERED: PERCOCET 5/325 PO ONE (20:55)
[2017-08-16 21:30] LABS: Basophils # (Auto) 0.1 K/mm3 (0.0-0.1); Basophils % (Auto) 0.6 % (0.0-1.8); Eosinophils # (Auto) 0.3 K/mm3 (0.0-0.4); Eosinophils % (Auto) 2.6 % (0.0-4.3); Hematocrit 40.7 % (30.3-42.9); Hemoglobin 13.2 gm/dl (10.1-14.3); Lymphocytes # (Auto) 3.3 K/mm3 (1.2-5.4); Lymphocytes % (Auto) 27.4 % (13.4-35.0); Mean Corpuscular HGB Conc 33 % (30-34); Mean Corpuscular Volume 78 fl (79-97); Monocytes # (Auto) 0.6 K/mm3 (0.0-0.8); Monocytes % (Auto) 5.2 % (0.0-7.3); Platelet Count 306 K/mm3 (140-440); Red Blood Count 5.19 M/mm3 (3.65-5.03); Red Cell Distribution Width 15.9 % (13.2-15.2)
[2017-08-16 21:35] LABS: Mean Corpuscular Hemoglobin 25 pg (28-32)
[2017-08-16 21:44] LABS: BUN/Creatinine Ratio 11; Blood Urea Nitrogen 8 mg/dL (7-17); Calcium 9.1 mg/dL (8.4-10.2); Hemolysis Index 20
--- NOTE | 2017-08-16 22:00 | Cat Scan Report ---
FINAL REPORT PROCEDURE: CT ABDOMEN PELVIS WO CON TECHNIQUE: Computerized axial tomography of the abdomen and pelvis was performed without intravenous contrast. This study is performed without intravascular contrast material and its sensitivity for abdominal and pelvic pathology, including neoplasms, inflammation, abscess, free fluid, thrombosis, arterial dissection and infarction, is reduced compared with a contrast enhanced study. HISTORY: C section dehisc, drainage; eval abscess abd wall COMPARISON: No prior studies are available for comparison. FINDINGS: Visualized lower thorax: No significant abnormality. Liver: Liver measures 24 centimeters craniocaudal. Spleen: Normal size and attenuation. Gallbladder and biliary system: There has been cholecystectomy. Pancreas: Normal. Adrenals: Normal. Kidneys: Normal. GI tract: Appendix is not visualized. No bowel obstruction or acute inflammation is seen. Lymph nodes and mesentery: Normal. Vasculature: Normal. Bladder: Normal. Reproductive organs: Grossly unremarkable. Peritoneum: No free fluid. Musculoskeletal structures: No significant abnormality. Other: There is anterior abdominal wall subcutaneous stranding and fluid at the incision site. No IV contrast was administered to evaluate for possible abscess. IMPRESSION: There is anterior abdominal wall subcutaneous stranding and a small amount of fluid at the incision site. No IV contrast was administered to evaluate for possible soft tissue abscess. No intraperitoneal free fluid or abnormal fluid collection is seen. If there are persistent symptoms, consider follow-up CT with IV contrast
[2017-08-16] MEDS ORDERED: XYLOCAINE 1% MPF 5 mL INFILTRATI ONE (22:50)
[2017-08-16] MEDS ORDERED: ROCEPHIN IM ONE (22:50)
== END 2017-08-16 23:50 | disposition home or self-care (01) ==
LOC: ED 18:40
DX: O90.0 Disruption of cesarean delivery wound (principal); F17.200 Nicotine dependence, unspecified, uncomplicated; Z88.6 Allergy status to analgesic agent; Z91.041 Radiographic dye allergy status
CPT/HCPCS: 36415; 74176; 80048; 85025; 87116; 96372; 99284; J0696

== ENCOUNTER 2017-11-18 12:52 | Emergency (ER) | payer MEDICAID ==
[2017-11-18 13:37] LABS: Bilirubin,Urine NEG (Negative); Blood,Urine NEG (Negative); Color,Urine Yellow (Yellow); Mucus,Urine 3+ /HPF
[2017-11-18 13:41] LABS: HCG Qualitative,Urine Negative (Negative)
[2017-11-18] MEDS ORDERED: PERCOCET 5/325 PO ONE ×2 (14:41→17:54)
[2017-11-18] MEDS ORDERED: ZOFRAN ODT PO ONE (14:41)
--- NOTE | 2017-11-18 14:41 | Emergency Department Report ---
ED Abdominal Pain HPI - General Chief Complaint: Abdominal Pain Stated Complaint: STOMACH PAIN/BACK PAIN Time Seen by Provider: 11/18/17 14:36 Source: patient Mode of arrival: Ambulatory Limitations: No Limitations - History of Present Illness Initial Comments: recent evaluation at [facility] for STD MD Complaint: abdominal pain, flank pain -: Gradual, days(s) (3) Location: diffuse Radiation: L flank Severity: severe Severity scale (0 -10): 10 Quality: cramping, aching, sharp Consistency: constant Worsens With: movement Associated Symptoms: nausea, vomiting, chills - Related Data Home Medications Medication Instructions Recorded Confirmed Last Taken Pnv,Calcium 72/Iron/Folic Acid 1 tab PO DAILY 07/08/17 07/19/17 2 Days Ago [Pnv Plus Multivit Tab] ~07/17/17 Previous Rx's Medication Instructions Recorded Last Taken Type Ferrous Sulfate [Feosol 325 MG tab] 325 mg PO BID #60 tablet 07/19/17 Unknown Rx HYDROcodone/APAP 5-325 [[place] 1 each PO Q6HR PRN #30 tablet 07/19/17 Unknown Rx 5/325] Ibuprofen [Motrin] 800 mg PO Q8HR PRN #30 tablet 07/19/17 Unknown Rx Vit Calc,Iron,Folic 1 each PO DAILY #30 tablet 07/19/17 Unknown Rx [ Vitamins] Benzethonium Chloride [Saline 210 ml TP DAILY #10 cleanser 08/16/17 Unknown Rx Wound Wash] Oxycodone HCl/Acetaminophen 1 each PO Q4-6H PRN #30 tablet 08/16/17 Unknown Rx [Endocet 7.5-325 mg Tablet] Sulfamethoxazole/Trimethoprim 1 each PO BID #20 tablet 08/16/17 Unknown Rx [Bactrim DS TAB] HYDROcodone/APAP 5-325 [[place] 1 each PO Q6HR PRN #10 tablet 11/18/17 Unknown Rx 5/325] Allergies Allergy/AdvReac Type Severity Reaction Status Date / Time Iodinated Contrast- Oral and Allergy Itching Verified 11/18/17 13:00 IV Dye [Iodinated Contrast Media - IV Dye] morphine Allergy Itching Verified 11/18/17 13:00 ED Review of Systems ROS: Stated complaint: STOMACH PAIN/BACK PAIN Other details as noted in HPI Comment: All other systems reviewed and negative Constitutional: fever, malaise Respiratory: denies: cough Cardiovascular: denies: chest pain ED Past Medical Hx - Past Medical History Hx Hypertension: No Hx Congestive Heart Failure: No Hx Diabetes: No Hx Deep Vein Thrombosis: No Hx Renal Disease: No Hx Sickle Cell Disease: No Hx Seizures: No Hx Asthma: Yes Hx COPD: No Hx HIV: No - Surgical History Hx Cholecystectomy: Yes Hx Appendectomy: Yes Additional Surgical History: 2014, 2017 - Social History Smoking Status: Current Every Day Smoker Substance Use Type: None - Medications Home Medications: Home Medications Medication Instructions Recorded Confirmed Last Taken Type Pnv,Calcium 72/Iron/Folic Acid 1 tab PO DAILY 07/08/17 07/19/17 2 Days Ago History [Pnv Plus Multivit Tab] ~07/17/17 Ferrous Sulfate [Feosol 325 MG tab] 325 mg PO BID #60 tablet 07/19/17 Unknown Rx HYDROcodone/APAP 5-325 [[place] 1 each PO Q6HR PRN #30 tablet 07/19/17 Unknown Rx 5/325] Ibuprofen [Motrin] 800 mg PO Q8HR PRN #30 tablet 07/19/17 Unknown Rx Vit Calc,Iron,Folic 1 each PO DAILY #30 tablet 07/19/17 Unknown Rx [ Vitamins] Benzethonium Chloride [Saline 210 ml TP DAILY #10 cleanser 08/16/17 Unknown Rx Wound Wash] Oxycodone HCl/Acetaminophen 1 each PO Q4-6H PRN #30 tablet 08/16/17 Unknown Rx [Endocet 7.5-325 mg Tablet] Sulfamethoxazole/Trimethoprim 1 each PO BID #20 tablet 08/16/17 Unknown Rx [Bactrim DS TAB] HYDROcodone/APAP 5-325 [[place] 1 each PO Q6HR PRN #10 tablet 11/18/17 Unknown Rx 5/325] ED Physical Exam - General Limitations: No Limitations General appearance: alert, other (appears uncomfortable) - Head Head exam: Present: atraumatic, normocephalic - Eye Eye exam: Present: normal appearance - ENT ENT exam: Present: mucous membranes moist - Neck Neck exam: Present: normal inspection. Absent: tenderness, meningismus - Respiratory Respiratory exam: Present: normal lung sounds bilaterally. Absent: respiratory distress, wheezes, rales, rhonchi - Cardiovascular Cardiovascular Exam: Present: regular rate, normal rhythm. Absent: systolic murmur, diastolic murmur, rubs, gallop - GI/Abdominal GI/Abdominal exam: Present: soft, normal bowel sounds. Absent: distended, tenderness, rebound - Extremities Exam Extremities exam: Present: normal inspection - Back Exam Back exam: Present: CVA tenderness (L) - Neurological Exam Neurological exam: Present: alert, oriented X3 - Psychiatric Psychiatric exam: Present: normal affect, normal mood - Skin Skin exam: Present: warm, dry, intact, normal color. Absent: rash ED Course Vital Signs 11/18/17 13:00 Temperature 98.7 F Pulse Rate 85 Respiratory 16 Rate Blood Pressure 149/90 O2 Sat by Pulse 98 Oximetry ED Medical Decision Making - Medical Decision Making Ms. Moreno presents with left flank pain and diffuse abdominal pain. No indication of peritonitis or obstruction. Pain likely due to ovarian cyst seen on CT. rx: norco Critical care attestation.: If time is entered above; I have spent that time in minutes in the direct care of this critically ill patient, excluding procedure time. ED Disposition Clinical Impression: Ovarian cyst, Abdominal pain Disposition: TO HOME OR SELFCARE Is pt being admited?: No Does the pt Need Aspirin: No Condition: Stable Instructions: Ovarian Cyst (ED) Prescriptions: HYDROcodone/APAP 5-325 [[place] 5/325] 1 each PO Q6HR PRN #10 tablet PRN Reason: Pain Referrals: BERENICE KRAFT MD [Staff Physician] - 3-5 Days Time of Disposition: 18:38
--- NOTE | 2017-11-18 18:34 | Cat Scan Report ---
FINAL REPORT EXAM: CT ABDOMEN PELVIS WO CON HISTORY: abdominal pain left flank pain TECHNIQUE: Unenhanced stone protocol CT of the abdomen and pelvis at 2.5 millimeter axial increments. Coronal and sagittal reconstruction was also performed. PRIORS: CT a/P 08/16/2017 FINDINGS: There is no evidence for renal calculi or hydronephrosis. No evidence for ureteral or bladder calculus is seen. No evidence for renal or bladder mass is noted. Otherwise, within the limits of a noncontrast exam, the liver, spleen, pancreas, and adrenal glands are unremarkable. The gallbladder has been surgically removed. No evidence for retroperitoneal or pelvic lymphadenopathy is seen. Otherwise, the bowel loops have normal caliber. No fluid collection, inflammatory change, or free air is seen within the abdomen or pelvis. The appendix has been surgically removed. Within the pelvis, the uterus is normal. There is a new 2.8 cm low-density rounded cyst in the left ovary. Images through the upper abdomen include the lung bases which are expanded and clear. Bony structures show no focal abnormalities. IMPRESSION: 1. No evidence for renal calculi or renal obstruction. 2. No acute abnormality of the abdomen and pelvis. 3. Left ovarian cyst, new from previous
[2017-11-18] MEDS ORDERED: TORADOL IM ONE (18:38)
[2017-11-18 18:56] VITALS: BP 134/70
== END 2017-11-18 18:55 | disposition home or self-care (01) ==
LOC: ED 12:52
DX: N83.209 Unspecified ovarian cyst, unspecified side (principal); R10.9 Unspecified abdominal pain; J45.909 Unspecified asthma, uncomplicated; F17.200 Nicotine dependence, unspecified, uncomplicated; Z90.49 Acquired absence of other specified parts of digestive tract; Z88.5 Allergy status to narcotic agent; Z91.041 Radiographic dye allergy status; Z79.899 Other long term (current) drug therapy
CPT/HCPCS: 74176; 81001; 81025; 96372; 99284; J1885; Q0162

== ENCOUNTER 2018-01-18 12:32 | Emergency (ER) | payer MEDICAID ==
[2018-01-18 13:52] LABS: Bilirubin,Urine NEG (Negative); Blood,Urine NEG (Negative); Color,Urine Yellow (Yellow); Protein,Urine <15 mg/dL mg/dL (Negative); RBC,Urine < 1.0 /HPF (0.0-6.0); Urobilinogen,Urine < 2.0 mg/dL (<2.0); WBC,Urine < 1.0 /HPF (0.0-6.0)
[2018-01-18 13:53] LABS: HCG Qualitative,Urine Negative (Negative)
[2018-01-18] MEDS ORDERED: DILAUDID IV ONE (17:42)
[2018-01-18] MEDS ORDERED: ZOFRAN IV ONE (17:43)
[2018-01-18 18:55] LABS: Hematocrit 45.9 % (30.3-42.9); Hemoglobin 14.9 gm/dl (10.1-14.3); Mean Corpuscular HGB Conc 32 % (30-34); Mean Corpuscular Hemoglobin 27 pg (28-32); Mean Corpuscular Volume 84 fl (79-97); Platelet Count 314 K/mm3 (140-440); Red Blood Count 5.45 M/mm3 (3.65-5.03); Red Cell Distribution Width 14.3 % (13.2-15.2)
--- NOTE | 2018-01-18 19:02 | Emergency Department Report ---
Blank Doc - Documentation Documentation: 32-year-old female with upper abdominal pain since yesterday. Patient denies nausea, vomiting, diarrhea, fever. States no history of this pain in the past. On examination appears uncomfortable, vital signs unremarkable. Patient has moderate tenderness to right upper quadrant, epigastric area and left upper quadrant. Lower abdomen nontender. Will obtain labs, imaging, and give pain meds.
[2018-01-18 19:20] LABS: Alanine Aminotransferase 25 units/L (7-56); Albumin 3.7 g/dL (3.9-5); BUN/Creatinine Ratio 12; Blood Urea Nitrogen 7 mg/dL (7-17); Calcium 8.8 mg/dL (8.4-10.2); Hemolysis Index 87; Lipase 23 units/L (13-60)
[2018-01-18 19:48] VITALS: BP 133/72
--- NOTE | 2018-01-18 21:36 | Cat Scan Report ---
FINAL REPORT EXAM: CT ABDOMEN PELVIS WO CON HISTORY: abd pain TECHNIQUE: Axial helical imaging through the abdomen and pelvis with sagittal and coronal reformatted images obtained. Comparison: CT abdomen and pelvis dated November 18, 2017 FINDINGS: The lung bases are without infiltrate, pneumothorax or pleural fluid collection. The heart appears to be enlarged. The liver, spleen, pancreas, kidneys and adrenal glands are unremarkable in appearance. The gallbladder is absent with surgical clips in the gallbladder fossa. The bowel is normal caliber. There is evidence of previous appendectomy. There is no evidence of pneumoperitoneum or free fluid. The abdominal aorta is normal caliber. There is no evidence of pathologic intra-abdominal adenopathy by CT size criteria. The urinary bladder is mildly distended and unremarkable in appearance. The uterus and adnexal are unremarkable in appearance. The bony structures are unremarkable. IMPRESSION: 1. No evidence of an acute intra-abdominal process. 2. Evidence of previous cholecystectomy and appendectomy. 3. The heart appears to be enlarged.
--- NOTE | 2018-01-18 21:37 | Emergency Department Report ---
ED Abdominal Pain HPI - General Chief Complaint: Abdominal Pain Stated Complaint: ABD PAIN Time Seen by Provider: 01/18/18 17:28 Source: patient Mode of arrival: Ambulatory Limitations: No Limitations - History of Present Illness Initial Comments: 32-year-old female with upper abdominal pain since yesterday. Patient denies nausea, vomiting, diarrhea, fever. States no history of this pain in the past. On examination appears uncomfortable, vital signs unremarkable. Patient has moderate tenderness to right upper quadrant, epigastric area and left upper quadrant. Lower abdomen nontender. Will obtain labs, imaging, and give pain meds. MD Complaint: abdominal pain Onset/Timin -: days(s) Location: RUQ Radiation: suprapubic Migration to: suprapubic Severity: moderate Severity scale (0 -10): 8 Quality: sharp Improves With: nothing Worsens With: nothing Associated Symptoms: denies: nausea, vomiting, diarrhea, fever, chills, constipation, dysuria, hematemesis, hematochezia, melena, hematuria, anorexia, syncope - Related Data Home Medications Medication Instructions Recorded Confirmed Last Taken Pnv,Calcium 72/Iron/Folic Acid 1 tab PO DAILY 07/08/17 07/19/17 2 Days Ago [Pnv Plus Multivit Tab] ~07/17/17 Previous Rx's Medication Instructions Recorded Last Taken Type Ferrous Sulfate [Feosol 325 MG tab] 325 mg PO BID #60 tablet 07/19/17 Unknown Rx HYDROcodone/APAP 5-325 [[place] 1 each PO Q6HR PRN #30 tablet 07/19/17 Unknown Rx 5/325] Ibuprofen [Motrin] 800 mg PO Q8HR PRN #30 tablet 07/19/17 Unknown Rx Vit Calc,Iron,Folic 1 each PO DAILY #30 tablet 07/19/17 Unknown Rx [ Vitamins] Benzethonium Chloride [Saline 210 ml TP DAILY #10 cleanser 08/16/17 Unknown Rx Wound Wash] Oxycodone HCl/Acetaminophen 1 each PO Q4-6H PRN #30 tablet 08/16/17 Unknown Rx [Endocet 7.5-325 mg Tablet] Sulfamethoxazole/Trimethoprim 1 each PO BID #20 tablet 08/16/17 Unknown Rx [Bactrim DS TAB] HYDROcodone/APAP 5-325 [[place] 1 each PO Q6HR PRN #10 tablet 11/18/17 Unknown Rx 5/325] Famotidine [Pepcid] 20 mg PO BID #30 tablet 01/18/18 Unknown Rx Naproxen [Naprosyn] 500 mg PO BID PRN #30 tablet 01/18/18 Unknown Rx Allergies Allergy/AdvReac Type Severity Reaction Status Date / Time Iodinated Contrast- Oral and Allergy Itching Verified 01/18/18 13:03 IV Dye [Iodinated Contrast Media - IV Dye] morphine Allergy Itching Verified 01/18/18 13:03 ED Review of Systems ROS: Stated complaint: ABD PAIN Other details as noted in HPI Constitutional: denies: chills, fever Eyes: denies: eye pain, eye discharge, vision change ENT: denies: ear pain, throat pain Respiratory: denies: cough, shortness of breath, wheezing Cardiovascular: denies: chest pain, palpitations Endocrine: no symptoms reported Gastrointestinal: abdominal pain. denies: nausea, diarrhea, constipation, hematemesis, melena, hematochezia, other Genitourinary: denies: urgency, dysuria, discharge Musculoskeletal: denies: back pain, joint swelling, arthralgia Skin: denies: rash, lesions Neurological: denies: headache, weakness, paresthesias Psychiatric: denies: anxiety, depression Hematological/Lymphatic: denies: easy bleeding, easy bruising ED Past Medical Hx - Past Medical History Hx Hypertension: No Hx Congestive Heart Failure: No Hx Diabetes: No Hx Deep Vein Thrombosis: No Hx Renal Disease: No Hx Sickle Cell Disease: No Hx Seizures: No Hx Asthma: Yes Hx COPD: No Hx HIV: No - Surgical History Hx Cholecystectomy: Yes Hx Appendectomy: Yes Additional Surgical History: 2017 - Social History Smoking Status: Never Smoker Substance Use Type: None - Medications Home Medications: Home Medications Medication Instructions Recorded Confirmed Last Taken Type Pnv,Calcium 72/Iron/Folic Acid 1 tab PO DAILY 07/08/17 07/19/17 2 Days Ago History [Pnv Plus Multivit Tab] ~07/17/17 Ferrous Sulfate [Feosol 325 MG tab] 325 mg PO BID #60 tablet 07/19/17 Unknown Rx HYDROcodone/APAP 5-325 [[place] 1 each PO Q6HR PRN #30 tablet 07/19/17 Unknown Rx 5/325] Ibuprofen [Motrin] 800 mg PO Q8HR PRN #30 tablet 07/19/17 Unknown Rx Vit Calc,Iron,Folic 1 each PO DAILY #30 tablet 07/19/17 Unknown Rx [ Vitamins] Benzethonium Chloride [Saline 210 ml TP DAILY #10 cleanser 08/16/17 Unknown Rx Wound Wash] Oxycodone HCl/Acetaminophen 1 each PO Q4-6H PRN #30 tablet 08/16/17 Unknown Rx [Endocet 7.5-325 mg Tablet] Sulfamethoxazole/Trimethoprim 1 each PO BID #20 tablet 08/16/17 Unknown Rx [Bactrim DS TAB] HYDROcodone/APAP 5-325 [[place] 1 each PO Q6HR PRN #10 tablet 11/18/17 Unknown Rx 5/325] Famotidine [Pepcid] 20 mg PO BID #30 tablet 01/18/18 Unknown Rx Naproxen [Naprosyn] 500 mg PO BID PRN #30 tablet 01/18/18 Unknown Rx ED Physical Exam - General Limitations: No Limitations General appearance: alert, in no apparent distress - Head Head exam: Present: atraumatic, normocephalic - Eye Eye exam: Present: normal appearance - ENT ENT exam: Present: mucous membranes moist - Neck Neck exam: Present: normal inspection, full ROM - Respiratory Respiratory exam: Present: normal lung sounds bilaterally. Absent: respiratory distress, chest wall tenderness - Cardiovascular Cardiovascular Exam: Present: regular rate, normal rhythm, normal heart sounds. Absent: systolic murmur, diastolic murmur, rubs, gallop - GI/Abdominal GI/Abdominal exam: Present: tenderness (RUQ, superpubic ), normal bowel sounds. Absent: guarding, rebound, mass, bruit, hernia - Rectal Rectal exam: Present: deferred - Extremities Exam Extremities exam: Present: normal inspection - Back Exam Back exam: Present: normal inspection, full ROM. Absent: CVA tenderness (R), CVA tenderness (L), muscle spasm, paraspinal tenderness, vertebral tenderness, rash noted - Neurological Exam Neurological exam: Present: alert, oriented X3, CN II-XII intact - Psychiatric Psychiatric exam: Present: normal affect, normal mood - Skin Skin exam: Present: warm, dry, intact, normal color. Absent: rash ED Course Vital Signs 01/18/18 01/18/18 01/18/18 13:04 18:21 19:47 Temperature 99.4 F 98.5 F Pulse Rate 66 82 Respiratory 18 18 18 Rate Blood Pressure 137/86 Blood Pressure 133/72 [Left] O2 Sat by Pulse 99 97 Oximetry ED Medical Decision Making - Lab Data Result diagrams: 01/18/18 18:06 01/18/18 18:06 Laboratory Tests 01/18/18 01/18/18 01/18/18 13:10 18:06 18:06 WBC 12.3 H RBC 5.45 H Hgb 14.9 H Hct 45.9 H MCV 84 MCH 27 L MCHC 32 RDW 14.3 Plt Count 314 Lymph % (Auto) Barn Operator [place] % (Auto) Barn Operator Eos % (Auto) Barn Operator Baso % (Auto) Barn Operator Lymph # Barn Operator [place] # Barn Operator Eos # Barn Operator Baso # Barn Operator Seg Neutrophils % Barn Operator Seg Neutrophils # Barn Operator Sodium 137 Potassium 4.8 Chloride 103.9 Carbon Dioxide 20 L Anion Gap 18 BUN 7 Creatinine 0.6 L Estimated GFR > 60 BUN/Creatinine Ratio 12 Glucose 85 Calcium 8.8 Total Bilirubin 0.30 AST 26 ALT 25 Alkaline Phosphatase 86 Total Protein 7.9 Albumin 3.7 L Albumin/Globulin Ratio 0.9 Lipase 23 Urine Color Yellow Urine Turbidity Clear Urine pH 8.0 H Ur Specific [place] 1.011 Urine Protein <15 mg/dl Urine Glucose (UA) Neg Urine Ketones Neg Urine Blood Neg Urine Nitrite Neg Urine Bilirubin Neg Urine Urobilinogen < 2.0 Ur Leukocyte Esterase Neg Urine WBC (Auto) < 1.0 Urine RBC (Auto) < 1.0 U Epithel Cells (Auto) 2.0 Urine HCG, Qual Negative - Radiology Data Radiology results: report reviewed, image reviewed normal ct abd pelvis - Medical Decision Making CT abdomen and pelvis negative for acute findings labs normal plan naproxen by mouth when necessary pain patient will establish and follow up with PCP [facility] outside [facility] in 2-3 days patient is currently tolerating by mouth intake without nausea and vomiting pain is now 1/10 patient is a and O 3 hammertoe in no acute distress patient will be DC'd home in stable condition at this time Critical care attestation.: If time is entered above; I have spent that time in minutes in the direct care of this critically ill patient, excluding procedure time. ED Disposition Clinical Impression: Abdominal pain Qualifiers: Abdominal location: right upper quadrant Qualified Code(s): R10.11 - Right upper quadrant pain Disposition: DC-01 TO HOME OR SELFCARE Is pt being admited?: No Does the pt Need Aspirin: No Condition: Good Instructions: Abdominal Pain (ED) Prescriptions: Famotidine [Pepcid] 20 mg PO BID #30 tablet Naproxen [Naprosyn] 500 mg PO BID PRN #30 tablet PRN Reason: pain Referrals: PRIMARY CARE, [Primary Care Provider] - 3-5 Days [facility] [Outside] - 3-5 Days Forms: Work/School Release Form(ED) Time of Disposition: 22:07
== END 2018-01-18 22:17 | disposition home or self-care (01) ==
LOC: ED 12:32
DX: R10.11 Right upper quadrant pain (principal); J45.909 Unspecified asthma, uncomplicated; Z90.49 Acquired absence of other specified parts of digestive tract; Z88.6 Allergy status to analgesic agent; Z91.041 Radiographic dye allergy status
CPT/HCPCS: 36415; 74176; 80053; 81001; 81025; 83690; 85025; 96374; 96375; 99284; J1170; J2405

== ENCOUNTER 2018-08-26 13:22 | Emergency (ER) | payer MEDICAID ==
[2018-08-26 14:38] VITALS: BP 147/99
--- NOTE | 2018-08-26 16:10 | XRay Report ---
PROCEDURE: XR KNEE 3V LT TECHNIQUE: AP,oblique, and lateral views of the left knee HISTORY: Left knee pain for one day COMPARISONS: None . FINDINGS: No acute fracture or dislocation is seen. The soft tissues are unremarkable with no evidence for supr apatellar joint effusion. Joint spaces are maintained and bony mineralization is normal. IMPRESSION: Negative views of the left knee. This document is electronically signed by Charlotte Eisenberg MD., Aug 26 2018 04:08:17 PM ET
--- NOTE | 2018-08-26 16:45 | XRay Report ---
PROCEDURE: XR SHOULDER 2+V LT TECHNIQUE: Left shoulder 3 views HISTORY: pain COMPARISONS: FINDINGS: No evidence for acute fracture or dislocation. Joint spaces are within normal limits. Adjacent bony a nd soft tissue structures are unremarkable. IMPRESSION: Negative shoulder series. This document is electronically signed by Indra Sweeney MD., Aug 26 2018 04:43:15 PM ET
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
[2018-08-26] MEDS ORDERED: DELTASONE PO ONE (17:27)
[2018-08-26] MEDS ORDERED: TORADOL IM ONE (17:27)
== END 2018-08-26 17:52 | disposition home or self-care (01) ==
LOC: ED 13:22
DX: S46.912A Strain of unspecified muscle, fascia and tendon at shoulder and upper arm level, left arm, initial encounter (principal); M25.562 Pain in left knee; M79.10 Myalgia, unspecified site; J45.909 Unspecified asthma, uncomplicated; Z90.49 Acquired absence of other specified parts of digestive tract; Z79.899 Other long term (current) drug therapy; Z91.040 Latex allergy status; Z88.6 Allergy status to analgesic agent; X58.XXXA Exposure to other specified factors, initial encounter; Y93.89 Activity, other specified; Y92.89 Other specified places as the place of occurrence of the external cause; Y99.8 Other external cause status
CPT/HCPCS: 36415; 73030; 73562; 84703; 96372; 99283; J1885; J7512

== ENCOUNTER 2018-09-01 00:55 | Emergency (ER) | payer MEDICAID ==
--- NOTE | 2018-09-01 02:28 | Emergency Department Report ---
ED ENT HPI - General Chief complaint: Dental/Oral Stated complaint: TOOTH PAIN Time Seen by Provider: 09/01/18 01:50 Source: patient Mode of arrival: Ambulatory Limitations: No Limitations - History of Present Illness Initial comments: Pt is a 32 yo female who presents to the ED with c/o left lower dental pain that began at 3 AM this morning. She states that she had four teeth extracted on 08/29 two on the right lower and two on the left lower. she states she has been taking ibuprofen without much relief. she states she has noticed a small amount of edema to the left lower side. she states she has been taking amoxicillin. she denies any fever. - Related Data Home Medications Medication Instructions Recorded Confirmed Last Taken Pnv,Calcium 72/Iron/Folic Acid 1 tab PO DAILY 07/08/17 07/19/17 2 Days Ago [Pnv Plus Multivit Tab] ~07/17/17 Previous Rx's Medication Instructions Recorded Last Taken Type Ferrous Sulfate [Feosol 325 MG tab] 325 mg PO BID #60 tablet 07/19/17 Unknown Rx HYDROcodone/APAP 5-325 [[place] 1 each PO Q6HR PRN #30 tablet 07/19/17 Unknown Rx 5/325] Vit Calc,Iron,Folic 1 each PO DAILY #30 tablet 07/19/17 Unknown Rx [ Vitamins] Benzethonium Chloride [Saline 210 ml TP DAILY #10 cleanser 08/16/17 Unknown Rx Wound Wash] Oxycodone HCl/Acetaminophen 1 each PO Q4-6H PRN #30 tablet 08/16/17 Unknown Rx [Endocet 7.5-325 mg Tablet] Sulfamethoxazole/Trimethoprim 1 each PO BID #20 tablet 08/16/17 Unknown Rx [Bactrim DS TAB] HYDROcodone/APAP 5-325 [[place] 1 each PO Q6HR PRN #10 tablet 11/18/17 Unknown Rx 5/325] Famotidine [Pepcid] 20 mg PO BID #30 tablet 01/18/18 Unknown Rx Naproxen [Naprosyn] 500 mg PO BID PRN #30 tablet 01/18/18 Unknown Rx Acetaminophen/Codeine [Tylenol 1 tab PO Q6H PRN #12 tab 01/26/18 Unknown Rx /Codeine # 3 tab] Menthol/Camphor [[place] 1 applicatio TP TID PRN #1 tube 01/26/18 Unknown Rx Ointment] Naproxen [Naprosyn] 500 mg PO BID PRN #30 tablet 01/26/18 Unknown Rx Cyclobenzaprine [Flexeril 10 MG 10 mg PO QHS PRN #20 tablet 08/26/18 Unknown Rx TAB] Ibuprofen [Motrin 800 MG tab] 800 mg PO Q8HR PRN #30 tablet 08/26/18 Unknown Rx Acetaminophen/Codeine [Tylenol 1 tab PO Q6H PRN #10 tab 09/01/18 Unknown Rx /Codeine # 3 tab] Amoxicillin/K Clav Tab [Augmentin 1 tab PO BID 7 Days #14 tab 09/01/18 Unknown Rx 875 mg] Allergies Allergy/AdvReac Type Severity Reaction Status Date / Time Iodinated Contrast- Oral and Allergy Itching Verified 09/01/18 00:58 IV Dye [Iodinated Contrast Media - IV Dye] morphine Allergy Itching Verified 09/01/18 00:58 ED Dental HPI - General Chief complaint: Dental/Oral Stated complaint: TOOTH PAIN Time Seen by Provider: 09/01/18 01:50 Source: patient Mode of arrival: Ambulatory Limitations: No Limitations - Related Data Home Medications Medication Instructions Recorded Confirmed Last Taken Pnv,Calcium 72/Iron/Folic Acid 1 tab PO DAILY 07/08/17 07/19/17 2 Days Ago [Pnv Plus Multivit Tab] ~07/17/17 Previous Rx's Medication Instructions Recorded Last Taken Type Ferrous Sulfate [Feosol 325 MG tab] 325 mg PO BID #60 tablet 07/19/17 Unknown Rx HYDROcodone/APAP 5-325 [[place] 1 each PO Q6HR PRN #30 tablet 07/19/17 Unknown Rx 5/325] Vit Calc,Iron,Folic 1 each PO DAILY #30 tablet 07/19/17 Unknown Rx [ Vitamins] Benzethonium Chloride [Saline 210 ml TP DAILY #10 cleanser 08/16/17 Unknown Rx Wound Wash] Oxycodone HCl/Acetaminophen 1 each PO Q4-6H PRN #30 tablet 08/16/17 Unknown Rx [Endocet 7.5-325 mg Tablet] Sulfamethoxazole/Trimethoprim 1 each PO BID #20 tablet 08/16/17 Unknown Rx [Bactrim DS TAB] HYDROcodone/APAP 5-325 [[place] 1 each PO Q6HR PRN #10 tablet 11/18/17 Unknown Rx 5/325] Famotidine [Pepcid] 20 mg PO BID #30 tablet 01/18/18 Unknown Rx Naproxen [Naprosyn] 500 mg PO BID PRN #30 tablet 01/18/18 Unknown Rx Acetaminophen/Codeine [Tylenol 1 tab PO Q6H PRN #12 tab 01/26/18 Unknown Rx /Codeine # 3 tab] Menthol/Camphor [[place] 1 applicatio TP TID PRN #1 tube 01/26/18 Unknown Rx Ointment] Naproxen [Naprosyn] 500 mg PO BID PRN #30 tablet 01/26/18 Unknown Rx Cyclobenzaprine [Flexeril 10 MG 10 mg PO QHS PRN #20 tablet 08/26/18 Unknown Rx TAB] Ibuprofen [Motrin 800 MG tab] 800 mg PO Q8HR PRN #30 tablet 08/26/18 Unknown Rx Acetaminophen/Codeine [Tylenol 1 tab PO Q6H PRN #10 tab 09/01/18 Unknown Rx /Codeine # 3 tab] Amoxicillin/K Clav Tab [Augmentin 1 tab PO BID 7 Days #14 tab 09/01/18 Unknown Rx 875 mg] Allergies Allergy/AdvReac Type Severity Reaction Status Date / Time Iodinated Contrast- Oral and Allergy Itching Verified 09/01/18 00:58 IV Dye [Iodinated Contrast Media - IV Dye] morphine Allergy Itching Verified 09/01/18 00:58 ED Review of Systems ROS: Stated complaint: TOOTH PAIN Other details as noted in HPI Comment: All other systems reviewed and negative ED Past Medical Hx - Past Medical History Previous Medical History?: Yes Hx Hypertension: No Hx Congestive Heart Failure: No Hx Diabetes: No Hx Deep Vein Thrombosis: No Hx Renal Disease: No Hx Sickle Cell Disease: No Hx Seizures: No Hx Asthma: Yes Hx COPD: No Hx HIV: No - Surgical History Hx Cholecystectomy: Yes Hx Appendectomy: Yes Additional Surgical History: 2014, 2017 - Social History Smoking Status: Never Smoker Substance Use Type: None - Medications Home Medications: Home Medications Medication Instructions Recorded Confirmed Last Taken Type Pnv,Calcium 72/Iron/Folic Acid 1 tab PO DAILY 07/08/17 07/19/17 2 Days Ago History [Pnv Plus Multivit Tab] ~07/17/17 Ferrous Sulfate [Feosol 325 MG tab] 325 mg PO BID #60 tablet 07/19/17 Unknown Rx HYDROcodone/APAP 5-325 [[place] 1 each PO Q6HR PRN #30 tablet 07/19/17 Unknown Rx 5/325] Vit Calc,Iron,Folic 1 each PO DAILY #30 tablet 07/19/17 Unknown Rx [ Vitamins] Benzethonium Chloride [Saline 210 ml TP DAILY #10 cleanser 08/16/17 Unknown Rx Wound Wash] Oxycodone HCl/Acetaminophen 1 each PO Q4-6H PRN #30 tablet 08/16/17 Unknown Rx [Endocet 7.5-325 mg Tablet] Sulfamethoxazole/Trimethoprim 1 each PO BID #20 tablet 08/16/17 Unknown Rx [Bactrim DS TAB] HYDROcodone/APAP 5-325 [[place] 1 each PO Q6HR PRN #10 tablet 11/18/17 Unknown Rx 5/325] Famotidine [Pepcid] 20 mg PO BID #30 tablet 01/18/18 Unknown Rx Naproxen [Naprosyn] 500 mg PO BID PRN #30 tablet 01/18/18 Unknown Rx Acetaminophen/Codeine [Tylenol 1 tab PO Q6H PRN #12 tab 01/26/18 Unknown Rx /Codeine # 3 tab] Menthol/Camphor [[place] 1 applicatio TP TID PRN #1 tube 01/26/18 Unknown Rx Ointment] Naproxen [Naprosyn] 500 mg PO BID PRN #30 tablet 01/26/18 Unknown Rx Cyclobenzaprine [Flexeril 10 MG 10 mg PO QHS PRN #20 tablet 08/26/18 Unknown Rx TAB] Ibuprofen [Motrin 800 MG tab] 800 mg PO Q8HR PRN #30 tablet 08/26/18 Unknown Rx Acetaminophen/Codeine [Tylenol 1 tab PO Q6H PRN #10 tab 09/01/18 Unknown Rx /Codeine # 3 tab] Amoxicillin/K Clav Tab [Augmentin 1 tab PO BID 7 Days #14 tab 09/01/18 Unknown Rx 875 mg] ED Physical Exam - General Limitations: No Limitations General appearance: alert, in no apparent distress - Head Head exam: Present: atraumatic, normocephalic - Eye Eye exam: Present: normal appearance - ENT ENT exam: Present: other (two teeth extracted on the left lower side and two teeth extracted on the right lower side, small amount of edema to the inside of the left lower cheek, no gum involvement, uvula is midline, no necrosis present) - Respiratory Respiratory exam: Present: normal lung sounds bilaterally. Absent: respiratory distress, wheezes, rales, rhonchi, stridor, chest wall tenderness, accessory muscle use, decreased breath sounds, prolonged expiratory - Cardiovascular Cardiovascular Exam: Present: regular rate, normal rhythm, normal heart sounds. Absent: systolic murmur, diastolic murmur, rubs, gallop - Neurological Exam Neurological exam: Present: alert, oriented X3 - Psychiatric Psychiatric exam: Present: normal affect, normal mood - Skin Skin exam: Present: warm, dry, intact ED Course Vital Signs 09/01/18 09/01/18 01:00 02:43 Temperature 97.8 F Pulse Rate 84 82 Respiratory 18 20 Rate Blood Pressure 156/100 Blood Pressure 156/100 121/80 [Left] O2 Sat by Pulse 98 99 Oximetry ED Medical Decision Making - Medical Decision Making Pt is a 32 yo female who presents to the ED with c/o left lower dental pain that began at 3 AM this morning. She states that she had four teeth extracted on 08/29 two on the right lower and two on the left lower. she states she has been taking ibuprofen without much relief. she states she has noticed a small amount of edema to the left lower side. she states she has been taking amoxicillin. she denies any fever. on exam pt has small amount of edema to the left cheek, no edema of the gum, no necrosis of the gum, no fluctuant dental abscess. pt abx changed to augmentin advised to stop taking the amoxicillin. pt given short course of pain medication, discussed to only take as needed for severe pain and discussed to use her ibuprofen for moderate pain. discussed with pt to please see her dentist in the next 2-3 days. return to the emergency room for any new or worsening symptoms. vitals are normal on repeat, discussed with pt to follow up with her PCP in the next 2-3 days due to elevated blood pressure reading on initial check. Critical care attestation.: If time is entered above; I have spent that time in minutes in the direct care of this critically ill patient, excluding procedure time. ED Disposition Clinical Impression: Pain, dental, Elevated blood pressure reading History of tooth extraction Qualifiers: Tooth loss class: unspecified tooth loss Qualified Code(s): K08.409 - Partial loss of teeth, unspecified cause, unspecified class Disposition: TO HOME OR SELFCARE Is pt being admited?: No Does the pt Need Aspirin: No Condition: Stable Instructions: Toothache (ED) Additional Instructions: Please follow up with your dentist in the next 2-3 days. please take medication as prescribed. do not drive or operate heavy machinery while taking pain medication. only take pain medication as needed for severe pain. take your ibuprofen for moderate pain. return to the emergency room for any new or wors ening symptoms. please follow up with a primary care doctor in the next 2-3 days, discuss elevated blood pressure reading while in the emergency department. Prescriptions: Amoxicillin/K Clav Tab [Augmentin 875 mg] 1 tab PO BID 7 Days #14 tab Acetaminophen/Codeine [Tylenol /Codeine # 3 tab] 1 tab PO Q6H PRN #10 tab PRN Reason: Pain , Severe (7-10) Referrals: your, dentist [Other] - 2-3 Days [facility] [Provider Group] - 2-3 Days Time of Disposition: 02:27 Print Language: MALTESE
[2018-09-01 02:43] VITALS: BP 121/80
== END 2018-09-01 03:12 | disposition home or self-care (01) ==
LOC: ED 00:55
DX: K08.409 Partial loss of teeth, unspecified cause, unspecified class (principal); J45.909 Unspecified asthma, uncomplicated; Z90.49 Acquired absence of other specified parts of digestive tract; Z91.041 Radiographic dye allergy status; Z88.5 Allergy status to narcotic agent
CPT/HCPCS: 99282

== ENCOUNTER 2019-03-16 08:24 | Emergency (ER) | payer OTHER, MEDICAID ==
[2019-03-16 08:31] VITALS: BP 140/74
[2019-03-16] MEDS ORDERED: CYCLOBENZAPRINE 10 MG TAB PO ONE (09:50)
[2019-03-16] MEDS ORDERED: IBUPROFEN 800 MG TAB PO ONE (09:50)
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
== END 2019-03-16 11:22 | disposition home or self-care (01) ==
LOC: ED 08:24
DX: S39.012A Strain of muscle, fascia and tendon of lower back, initial encounter (principal); S76.011A Strain of muscle, fascia and tendon of right hip, initial encounter; F17.200 Nicotine dependence, unspecified, uncomplicated; Z91.041 Radiographic dye allergy status; Z88.6 Allergy status to analgesic agent; V49.49XA Driver injured in collision with other motor vehicles in traffic accident, initial encounter; Y93.89 Activity, other specified; Y92.410 Unspecified street and highway as the place of occurrence of the external cause; Y99.8 Other external cause status
CPT/HCPCS: 72100